=== PATIENT | female | born 1950 | race Caucasian/White ===

== ENCOUNTER 2016-08-02 13:26 | Inpatient (IN) | payer MEDICARE, OTHER ==
[~2016-08-02] VITALS: Ht 154.9 cm; Wt 81.8 kg
[2016-08-02] VITALS (35 sets, daily range): BP systolic 80–136; BP diastolic 47–73; PULSE 59–73; RESP 17–37; TEMP 96.9–97.5; O2SAT 87–98; Ht 154.9 cm; Wt 81.8 kg
--- OUTSIDE RECORDS SUMMARY | 2016-08-02 13:30 | XMS REPORT | Continuity of Care Document ---
Author Author [facility] Organization [facility] Address Unknown Phone Unavailable Allergies Active Description Code Type Severity Reaction Onset Reported/Identified Relationship to Patient Clinical Status Yes NO LATEX ALLERGY Drug Allergy N/A N/A Yes egg egg Drug Allergy Moderate RASH 12/03/2014 Yes morphine morphine Drug Allergy Moderate AIRWAY 12/03/2014 Yes Zsddqes-Iit-Szp Reductase Inhibitor Zvupmtg-Nqc-Elf Reductase Inhibitor Drug Allergy Moderate MUSCLE 12/03/2014 Yes egg egg Drug Allergy Moderate RASH 12/03/2014 Yes morphine morphine Drug Allergy Moderate AIRWAY 12/03/2014 Yes Xzpnojw-Dlx-Vjp Reductase Inhibitor Teyerty-Rog-Dxc Reductase Inhibitor Drug Allergy Moderate MUSCLE 12/03/2014 Medications Problems Procedures Results Test Result Range GLUCOSE (POC) - 12/03/14 08:54 GLUCOSE (POC) 121 mg/dL 70-99 Microbiology GLUCOSE (POC) - 12/03/14 10:57 GLUCOSE (POC) 121 mg/dL 70-99 Microbiology Encounters ACCT No. Visit Date/Time Discharge Status Pt. Type Provider Facility Loc./Unit Complaint [id number] 12/03/2014 08:44:00 2014 11:27:00 DIS Emergency Surinder CROSS, Toan Patel [facility] E.ED
--- OUTSIDE RECORDS SUMMARY | 2016-08-02 13:30 | XMS REPORT ---
Author Tre Carrillo Organization [employer] Address Unknown Phone Unavailable Care Team Providers Care Wallet Assembler Name Role Phone Tre Dc CP Unavailable Allergies No Known Allergies Problems No Known Problems Medications No Known Medications Results No Known Results Summary Purpose [employer] Submission
--- OUTSIDE RECORDS SUMMARY | 2016-08-02 13:30 | XMS REPORT | Continuity of Care Document ---
Author Author [facility] Organization [facility] Address Unknown Phone Unavailable Allergies Active Description Code Type Severity Reaction Onset Reported/Identified Relationship to Patient Clinical Status Yes NO LATEX ALLERGY Drug Allergy N/A N/A Yes egg egg Drug Allergy Moderate RASH 12/03/2014 Yes morphine morphine Drug Allergy Moderate AIRWAY 12/03/2014 Yes Inqwujs-Tgi-Rgs Reductase Inhibitor Gmdeyhs-Tib-Aig Reductase Inhibitor Drug Allergy Moderate MUSCLE 12/03/2014 Yes egg egg Drug Allergy Moderate RASH 12/03/2014 Yes morphine morphine Drug Allergy Moderate AIRWAY 12/03/2014 Yes Jcoqavg-Lps-Blv Reductase Inhibitor Sqbvies-Lid-Igs Reductase Inhibitor Drug Allergy Moderate MUSCLE 12/03/2014 Medications Problems Procedures Results Test Result Range GLUCOSE (POC) - 12/03/14 08:54 GLUCOSE (POC) 121 mg/dL 70-99 Microbiology GLUCOSE (POC) - 12/03/14 10:57 GLUCOSE (POC) 121 mg/dL 70-99 Microbiology Encounters ACCT No. Visit Date/Time Discharge Status Pt. Type Provider Facility Loc./Unit Complaint [id number] 12/03/2014 08:44:00 2014 11:27:00 DIS Emergency Surinder CROSS, Toan Patel [facility] E.ED
--- NOTE | 2016-08-02 13:43 | ERPDOC ---
Departure Impression Impression Referrals: PAULINO MEJIA MD (Family) HPI - Chest Pain General Stated Complaint: CARDIAC PROBLEMS Time Seen by Provider: 13:43 Physical Exam General Vitals and Pain Weight: Kilograms: Height (feet): Height (inches): Triage Pain Scale: Progress Results/Orders Orders Procedure Category Date Status Time EKG EKG 08/02/16 Logged 13:32 EMANUEL MORRISON MD August 02, 2016 13:43
[2016-08-02] MEDS ORDERED: ASPIRIN 81 MG CHEWABLE TABLET PO ONE (13:45)
[2016-08-02] MEDS ORDERED: NITROGLYCERIN 0.4 MG SUBLINGUAL TABLET SL PRN ×2 (13:45→15:00)
[2016-08-02] MEDS ORDERED: DIGOXIN 500mcg/2ml INJECTION IV ONE (14:00)
--- OUTSIDE RECORDS SUMMARY | 2016-08-02 14:06 | XMS REPORT | Continuity of Care Document ---
Author Author [facility] Organization [facility] Address Unknown Phone Unavailable Allergies Active Description Code Type Severity Reaction Onset Reported/Identified Relationship to Patient Clinical Status Yes NO LATEX ALLERGY Drug Allergy N/A N/A Yes egg egg Drug Allergy Moderate RASH 12/03/2014 Yes morphine morphine Drug Allergy Moderate AIRWAY 12/03/2014 Yes Reotpna-Xgy-Maa Reductase Inhibitor Jatwukt-Fum-Owh Reductase Inhibitor Drug Allergy Moderate MUSCLE 12/03/2014 Yes egg egg Drug Allergy Moderate RASH 12/03/2014 Yes morphine morphine Drug Allergy Moderate AIRWAY 12/03/2014 Yes Uyafpzw-Yda-Mok Reductase Inhibitor Dcgjpgr-Azi-Zll Reductase Inhibitor Drug Allergy Moderate MUSCLE 12/03/2014 Medications Problems Procedures Results Test Result Range GLUCOSE (POC) - 12/03/14 08:54 GLUCOSE (POC) 121 mg/dL 70-99 Microbiology GLUCOSE (POC) - 12/03/14 10:57 GLUCOSE (POC) 121 mg/dL 70-99 Microbiology Encounters ACCT No. Visit Date/Time Discharge Status Pt. Type Provider Facility Loc./Unit Complaint [id number] 12/03/2014 08:44:00 2014 11:27:00 DIS Emergency Surinder CROSS, Toan Patel [facility] E.ED
--- OUTSIDE RECORDS SUMMARY | 2016-08-02 14:06 | XMS REPORT | Continuity of Care Document ---
Author Author [facility] Organization [facility] Address Unknown Phone Unavailable Allergies Active Description Code Type Severity Reaction Onset Reported/Identified Relationship to Patient Clinical Status Yes NO LATEX ALLERGY Drug Allergy N/A N/A Yes egg egg Drug Allergy Moderate RASH 12/03/2014 Yes morphine morphine Drug Allergy Moderate AIRWAY 12/03/2014 Yes Zbeobxu-Fne-Nei Reductase Inhibitor Geneixj-Ojn-Xzz Reductase Inhibitor Drug Allergy Moderate MUSCLE 12/03/2014 Yes egg egg Drug Allergy Moderate RASH 12/03/2014 Yes morphine morphine Drug Allergy Moderate AIRWAY 12/03/2014 Yes Wuuksus-Mwa-Dyq Reductase Inhibitor Hbxlyub-Whz-Yys Reductase Inhibitor Drug Allergy Moderate MUSCLE 12/03/2014 Medications Problems Procedures Results Test Result Range GLUCOSE (POC) - 12/03/14 08:54 GLUCOSE (POC) 121 mg/dL 70-99 Microbiology GLUCOSE (POC) - 12/03/14 10:57 GLUCOSE (POC) 121 mg/dL 70-99 Microbiology Encounters ACCT No. Visit Date/Time Discharge Status Pt. Type Provider Facility Loc./Unit Complaint [id number] 12/03/2014 08:44:00 2014 11:27:00 DIS Emergency Surinder CROSS, Toan Patel [facility] E.ED
[2016-08-02] MEDS ORDERED: NORMAL SALINE 1,000 ML IV ONE (14:15)
--- NOTE | 2016-08-02 14:20 | NUR ---
Cath Pt out via cart to [facility], transported by JUVENTINO Herrera.
[2016-08-02 14:24] LABS: BASOPHILS # (AUTO) 0.1 T/MM3 (0-0.2); EOSINOPHILS # (AUTO) 0.3 T/MM3 (0-0.5); HCT - HEMATOCRIT 44.7 % (36-46); HGB - HEMOGLOBIN 14.8 GM/DL (12-16); IMMATURE GRANULOCYTE # (AUTO) 0.02 T/MM3 (0.00-0.03); IMMATURE GRANULOCYTE % (AUTO) 0.2 % (0.0-0.5); LYMPHOCYTES # (AUTO) 1.6 T/MM3 (1-4.8); LYMPHOCYTES % (AUTO) 18.2 % (23-45); MEAN CORPUSCULAR HGB 31.4 UUG (26-34); MEAN CORPUSCULAR HGB CONC(MCHC 33.1 GM/DL (31-37); MEAN CORPUSCULAR VOLUME 94.7 UM3 (80-100); MEAN PLATELET VOLUME 10.5 UM3 (9.4-12.4); MONOCYTES # (AUTO) 0.5 T/MM3 (0-0.8); NEUTROPHILS #(AUTO)-ABSOLUTE 6.3 T/MM3 (1.8-7.7); NEUTROPHILS % (AUTO) 71.6 % (33-66); RED BLOOD COUNT 4.72 M/MM3 (4.00-5.20); WBC - WHITE BLOOD COUNT 8.8 T/MM3 (4.5-11.0)
[2016-08-02] MEDS ORDERED: NORMAL SALINE 1,000 ML ONE (14:27)
[2016-08-02 14:30] LABS: INR 1.01 (0.76-1.04)
[2016-08-02] MEDS ORDERED: DiphenhydrAMINE 50 MG/ML INJECTION ONE (14:34)
[2016-08-02] MEDS ORDERED: FENTANYL 100mcg/2ml INJECTION ONE (14:37)
[2016-08-02] MEDS ORDERED: MIDAZOLAM 2mg/2ml INJECTION ONE (14:37)
[2016-08-02 14:42] LABS: MAGNESIUM 2.9 MG/DL (1.6-2.3)
[2016-08-02] MEDS ORDERED: HEPARIN 1,000units in NS 500ml BAG IV ONE (14:42)
[2016-08-02] MEDS ORDERED: LIDOCAINE 1% (10mg/ml) 30ml SDV ONE (14:42)
[2016-08-02 14:44] LABS: ALBUMIN 4.8 G/DL (3.5-5.0); ALBUMIN/GLOBULIN RATIO 1.7 RATIO (1.1-2.2); ALKALINE PHOSPHATASE 80 U/L (38-126); ALT (SGPT) 43 U/L (9-52); ANION GAP 18 MEQ/L (5-15); AST (SGOT) 51 U/L (14-36); BUN/CREATININE RATIO 10 RATIO (6-26); CALCIUM 10.7 MG/DL (8.4-10.2); CHLORIDE 111 MEQ/L (98-107); CO2 - CARBON DIOXIDE 21 MEQ/L (22-30); CREATININE 3.7 MG/DL (0.7-1.2); GLOMERULAR FILTRATION RATE 12; GLUCOSE 182 MG/DL (65-110); POTASSIUM 5.1 MEQ/L (3.6-5); SODIUM 150 MEQ/L (134-144); TOTAL PROTEIN 7.7 G/DL (6.3-8.2)
[2016-08-02 14:56] LABS: PROBNP 12800 PG/ML (0-175)
[2016-08-02] MEDS ORDERED: LORAZEPAM 2 MG/ML INJECTION IV PRN (15:00)
[2016-08-02] MEDS ORDERED: LORAZEPAM 1 MG TABLET PO PRN (15:00)
[2016-08-02] MEDS ORDERED: PROMETHAZINE 25 MG INJECTION IV PRN (15:00)
[2016-08-02] MEDS ORDERED: ONDANSETRON 4mg/2ml INJECTION IV PRN (15:00)
[2016-08-02] MEDS ORDERED: ATROPINE 1 MG/ML VIAL IV PRN (15:00)
[2016-08-02] MEDS ORDERED: MILK OF MAGNESIA 30 ML SUSP PO PRN (15:00)
[2016-08-02] MEDS ORDERED: MAG-AL + SIM LIQUID 30 ML UDC PO PRN (15:00)
[2016-08-02] MEDS ORDERED: BISACODYL 5 MG E.C. TABLET PO PRN (15:00)
[2016-08-02] MEDS ORDERED: ACETAMINOPHEN 325 MG TABLET PO PRN (15:00)
[2016-08-02] MEDS ORDERED: BISACODYL 10 MG SUPPOSITORY RECTALLY PRN (15:00)
[2016-08-02] MEDS ORDERED: METOCLOPRAMIDE 10mg/2ml INJECTION IV PRN (15:00)
[2016-08-02] MEDS ORDERED: MEXI150C2 PO (15:17)
[2016-08-02] MEDS ORDERED: FURO40TA5 PO (15:17)
[2016-08-02] MEDS ORDERED: POLY17PO2 PO (15:17)
[2016-08-02] MEDS ORDERED: FLUT15.88 NAS (15:17)
[2016-08-02] MEDS ORDERED: METO-279 PO (15:17)
[2016-08-02] MEDS ORDERED: ACET-62 PO (15:17)
[2016-08-02] MEDS ORDERED: SENN8.6T94 PO (15:17)
[2016-08-02] MEDS ORDERED: LEVO50TA11 PO (15:17)
[2016-08-02] MEDS ORDERED: LEVO175T9 PO (15:17)
[2016-08-02] MEDS ORDERED: CHOL100018 PO (15:17)
[2016-08-02] MEDS ORDERED: CYAN10009 PO (15:17)
[2016-08-02] MEDS ORDERED: PRAS10TA5 PO (15:17)
[2016-08-02] MEDS ORDERED: CALC0.25 PO (15:17)
[2016-08-02] MEDS ORDERED: POTA20TA87 PO (15:17)
[2016-08-02] MEDS ORDERED: AMIO200T2 PO (15:17)
[2016-08-02] MEDS ORDERED: FISH1CAP2 PO (15:17)
--- NOTE | 2016-08-02 15:20 | NUR ---
RECEIVED TO CCU-6 FROM [facility]NAGER. DROWSY, RESPONDS TO VERBAL STIMULI. DENIES CHEST DISCOMFORT. MONITOR SHOWS PACED RHYTHM. RIGHT GROIN DRESSING STABLE, CLEAN, DRY, INTACT, AREA SOFT. PEDAL PULSE PALPABLE , TOES COOL, SL DUSKY. O2 3 L PER NC. SPO2 AROUND 90%. SLOWLY DRIFTS TO UPPER 80'S, WITH O2 INCREASED TO 5 L PER NC.
[2016-08-02] MEDS ORDERED: POLYETHYL.GLYCOL 3350 PACKET 17gm PO PRN (15:30)
[2016-08-02] MEDS ORDERED: ACETAMINOPHEN 500 MG TABLET PO PRN (15:30)
--- OUTSIDE RECORDS SUMMARY | 2016-08-02 15:43 | XMS REPORT | Continuity of Care Document ---
Author Author [facility] Organization [facility] Address Unknown Phone Unavailable Allergies Active Description Code Type Severity Reaction Onset Reported/Identified Relationship to Patient Clinical Status Yes NO LATEX ALLERGY Drug Allergy N/A N/A Yes egg egg Drug Allergy Moderate RASH 12/03/2014 Yes morphine morphine Drug Allergy Moderate AIRWAY 12/03/2014 Yes Euwktiw-Dtn-Hbp Reductase Inhibitor Telvovx-Ept-Cop Reductase Inhibitor Drug Allergy Moderate MUSCLE 12/03/2014 Yes egg egg Drug Allergy Moderate RASH 12/03/2014 Yes morphine morphine Drug Allergy Moderate AIRWAY 12/03/2014 Yes Yuhjptb-Frx-The Reductase Inhibitor Gfvjbtl-Omp-Fae Reductase Inhibitor Drug Allergy Moderate MUSCLE 12/03/2014 Medications Problems Procedures Results Test Result Range GLUCOSE (POC) - 12/03/14 08:54 GLUCOSE (POC) 121 mg/dL 70-99 Microbiology GLUCOSE (POC) - 12/03/14 10:57 GLUCOSE (POC) 121 mg/dL 70-99 Microbiology Encounters ACCT No. Visit Date/Time Discharge Status Pt. Type Provider Facility Loc./Unit Complaint [id number] 12/03/2014 08:44:00 2014 11:27:00 DIS Emergency Surinder CROSS, Toan Patel [facility] E.ED
--- OUTSIDE RECORDS SUMMARY | 2016-08-02 15:44 | XMS REPORT | Continuity of Care Document ---
Author Author [facility] Organization [facility] Address Unknown Phone Unavailable Allergies Active Description Code Type Severity Reaction Onset Reported/Identified Relationship to Patient Clinical Status Yes NO LATEX ALLERGY Drug Allergy N/A N/A Yes egg egg Drug Allergy Moderate RASH 12/03/2014 Yes morphine morphine Drug Allergy Moderate AIRWAY 12/03/2014 Yes Ewxfyzm-Pwf-Pnf Reductase Inhibitor Toqyjzw-Fxw-Dcd Reductase Inhibitor Drug Allergy Moderate MUSCLE 12/03/2014 Yes egg egg Drug Allergy Moderate RASH 12/03/2014 Yes morphine morphine Drug Allergy Moderate AIRWAY 12/03/2014 Yes Vybffvn-Cha-Fft Reductase Inhibitor Psmqvmx-Atg-Wyc Reductase Inhibitor Drug Allergy Moderate MUSCLE 12/03/2014 Medications Problems Procedures Results Test Result Range GLUCOSE (POC) - 12/03/14 08:54 GLUCOSE (POC) 121 mg/dL 70-99 Microbiology GLUCOSE (POC) - 12/03/14 10:57 GLUCOSE (POC) 121 mg/dL 70-99 Microbiology Encounters ACCT No. Visit Date/Time Discharge Status Pt. Type Provider Facility Loc./Unit Complaint [id number] 12/03/2014 08:44:00 2014 11:27:00 DIS Emergency Surinder CROSS, Toan Patel [facility] E.ED
[2016-08-02 15:50] LABS: DIGOXIN < 0.4 NG/ML (0.8-2.0)
--- NOTE | 2016-08-02 15:55 | NUR ---
HEPARIN CONSULT (Initial): Baseline PTT = ___ Sec. Baseline platelet count = 244 T/mm3. PTT Target Range = 50-75 Will give Heparin Bolus of 5,000units, start Heparin Drip at 1000units/hr (25ml/hr). Heparin 20,000 units in D5W 500ml. We will continue to monitor and make adjustments accordingly. Thank you.
[2016-08-02] MEDS ORDERED: HEPARIN 20,000 units/D5W 500ml 500 ML IV SCH (16:00)
--- OUTSIDE RECORDS SUMMARY | 2016-08-02 16:12 | XMS REPORT | Continuity of Care Document ---
Author Author [facility] Organization [facility] Address Unknown Phone Unavailable Allergies Active Description Code Type Severity Reaction Onset Reported/Identified Relationship to Patient Clinical Status Yes NO LATEX ALLERGY Drug Allergy N/A N/A Yes egg egg Drug Allergy Moderate RASH 12/03/2014 Yes morphine morphine Drug Allergy Moderate AIRWAY 12/03/2014 Yes Bebwsuu-Kdx-Hyq Reductase Inhibitor Eldhuwq-Rio-Kod Reductase Inhibitor Drug Allergy Moderate MUSCLE 12/03/2014 Yes egg egg Drug Allergy Moderate RASH 12/03/2014 Yes morphine morphine Drug Allergy Moderate AIRWAY 12/03/2014 Yes Rzeswbd-Wnv-Ujw Reductase Inhibitor Tehmgew-Gxz-Tdv Reductase Inhibitor Drug Allergy Moderate MUSCLE 12/03/2014 Medications Problems Procedures Results Test Result Range GLUCOSE (POC) - 12/03/14 08:54 GLUCOSE (POC) 121 mg/dL 70-99 Microbiology GLUCOSE (POC) - 12/03/14 10:57 GLUCOSE (POC) 121 mg/dL 70-99 Microbiology Encounters ACCT No. Visit Date/Time Discharge Status Pt. Type Provider Facility Loc./Unit Complaint [id number] 12/03/2014 08:44:00 2014 11:27:00 DIS Emergency Surinder CROSS, Toan Patel [facility] E.ED
--- OUTSIDE RECORDS SUMMARY | 2016-08-02 16:12 | XMS REPORT | Continuity of Care Document ---
Author Author [facility] Organization [facility] Address Unknown Phone Unavailable Allergies Active Description Code Type Severity Reaction Onset Reported/Identified Relationship to Patient Clinical Status Yes NO LATEX ALLERGY Drug Allergy N/A N/A Yes egg egg Drug Allergy Moderate RASH 12/03/2014 Yes morphine morphine Drug Allergy Moderate AIRWAY 12/03/2014 Yes Kjsyjiv-Zll-Ziu Reductase Inhibitor Jctnrby-Yrr-Jzc Reductase Inhibitor Drug Allergy Moderate MUSCLE 12/03/2014 Yes egg egg Drug Allergy Moderate RASH 12/03/2014 Yes morphine morphine Drug Allergy Moderate AIRWAY 12/03/2014 Yes Rxnniyv-Egz-Qtd Reductase Inhibitor Zasqqkr-Aaw-Nnr Reductase Inhibitor Drug Allergy Moderate MUSCLE 12/03/2014 Medications Problems Procedures Results Test Result Range GLUCOSE (POC) - 12/03/14 08:54 GLUCOSE (POC) 121 mg/dL 70-99 Microbiology GLUCOSE (POC) - 12/03/14 10:57 GLUCOSE (POC) 121 mg/dL 70-99 Microbiology Encounters ACCT No. Visit Date/Time Discharge Status Pt. Type Provider Facility Loc./Unit Complaint [id number] 12/03/2014 08:44:00 2014 11:27:00 DIS Emergency Surinder CROSS, Toan Patel [facility] E.ED
--- NOTE | 2016-08-02 16:26 | HPPDOC ---
MINA BYNUM V DRUM WORKER 08/02/16 1557: HPI - Adult Date DATE: 08/02/16 TIME: 15:47 General Chief Complaint: Chest pain History of Present Illness Patient is a 66-year-old female who was brought to the emergency room today by her for evaluation of acute chest pain. She has significant cardiac history with known coronary artery disease, history of FL and CABG. She generally sees primary care at the [facility], however, today had acute pain and has been brought her to the closest facility for further evaluation. On arrival to the emergency room she was found to be in atrial fibrillation with a left bundle branch block and a wide QRS interval. Cardiology was contacted initially by the emergency room physician for further cardiac evaluation given her known history. She was then taken to the cardiac [facility] directly under the care of Dr Patricio. The hospitalist services were contacted and were asked to admit patient for further medical evaluation and treatment. Patient is seen upon arrival to CCU following heart cath. She remains sedated at this time and entire history is obtained from her . Reviewed WBC 8.8, Hgb 14.8, HCT 44.7, PLT 244. Sodium is elevated at 150, potassium 5.1, CO 21, BUN 38, creatinine 3.7, glucose 182. Magnesium 2.9. Troponin 0.022, proBNP 12,800, TSH is elevated at 22.7. INR 1.01, Digoxin <0.4. Past Medical History Past Medical History Coronary artery disease with FL and CABG (in the late ) Atrial fibrillation Chronic kidney disease Multiple CVAs History of ovarian tumor Cardiac pacemaker Radioactive thyroid ablation Surgical History Patient's Surgical History: CABG- in the . Cardiac pacemaker Hysterectomy with left ovary removal 2 Right ovarian removal with large tumor- 2010 Current Medications Home Meds Reported Medications Acetaminophen (Acetaminophen) 500 Mg Tablet, 1-2 TAB PO PRN Y for PAIN, TAB Do not exceed 3,200 mg of acetaminophen in a 24 hours period. 08/02/16 Cyanocobalamin (Vitamin B-12) (Vitamin B-12) 1,000 Mcg Tablet, 1 TAB PO DAILY 08/02/16 [place]-3 Fatty Acids/Fish Oil (Fish Oil 1,000 mg Capsule) 1 Each Capsule, 2000 MG PO DAILY, CAP 08/02/16 Prasugrel HCl (Effient) 10 Mg Tablet, 10 MG PO DAILY, TAB 08/02/16 Calcitriol (Rocaltrol) 0.25 Mcg Capsule, 1 CAP PO DAILY 08/02/16 Metoprolol Succinate (Metoprolol Succinate) 100 Mg Tab.er.24h, 50 MG PO BID, TAB 08/02/16 Cholecalciferol (Vitamin D3) 1,000 Unit Tablet, 1 TAB PO DAILY 08/02/16 Levothyroxine Sodium (Levothyroxine Sodium) 50 Mcg Tablet, 50 MCG PO ACB, TAB Once daily before breakfast. 08/02/16 Furosemide (Furosemide) 40 Mg Tablet, 80 MG PO QAM, TAB qam as needed for weight gain over 3 pounds. 08/02/16 Amiodarone HCl (Amiodarone HCl) 200 Mg Tablet, 400 MG PO BID, TAB 08/02/16 Sennosides (Senokot) 8.6 Mg Tablet, 8.6 MG PO QD, TAB 08/02/16 Mexiletine HCl (Mexiletine HCl) 150 Mg Capsule, 150 MG PO DAILY, CAP Take 1 capsule, by mouth, every 8 hours. 08/02/16 Fluticasone Propionate (Fluticasone Propionate) 15.8 Ml [place].susp, 1 SPRAY ROLO 08/02/16 Discontinued Reported Medications Polyethylene Glycol 3350 (Polyethylene Glycol 3350) 17 Gm Powd.pack, 17 GM PO BID Y for rn 08/02/16 Potassium Chloride (Potassium Chloride) 20 Meq Tab.er.prt, 20 MEQ PO QOD, TAB 08/02/16 Levothyroxine Sodium (Levothyroxine Sodium) 175 Mcg Tablet, 175 MCG PO ACB, TAB Once daily before breakfast. 08/02/16 Allergies: Coded Allergies: aspirin (Verified Allergy, Mild, 08/02/16) Influenza Virus Vaccines (Verified Allergy, Unknown, 08/02/16) Iodinated Contrast Media - Oral and (Verified Allergy, Unknown, 08/02/16) Opioids - Morphine Analogues (Verified Allergy, Unknown, 08/02/16) Penicillins (Verified Allergy, Unknown, 08/02/16) Sulfa (Sulfonamide Antibiotics) (Verified Allergy, Unknown, 08/02/16) atorvastatin (Verified Allergy, Unknown, 08/02/16) carvedilol (Verified Allergy, Unknown, 08/02/16) codeine (Verified Allergy, Unknown, 08/02/16) dipyridamole (Verified Allergy, Unknown, 08/02/16) egg (Verified Allergy, Unknown, 08/02/16) gemfibrozil (Verified Allergy, Unknown, 08/02/16) lisinopril (Verified Allergy, Unknown, 08/02/16) niacin (Verified Allergy, Unknown, 08/02/16) pravastatin (Verified Allergy, Unknown, 08/02/16) simvastatin (Verified Allergy, Unknown, 08/02/16) Family History Family History: Father was killed by a drunk line haul driver Mother- congestive heart failure, dementia Multiple siblings with dementia Social History Smoking Status: Never smoker Substance Use Type: does not use Alcohol Intake: none Marital Status: Sexuality: male partner Housing: house Advance Directives: Yes DPOA for Healthcare Only Social History Comments Primary care provider at the [facility] reports he would like patient to be a full code. However, requests that we ask patient when she is more alert what her wishes are. Review of Systems Unable to Obtain ROS Due to: clinical condition Comments Unable to obtain a ROS due to postcardiac cath sedation All Other Systems All Other Systems: Reviewed Physical Exam General General Nourishment: well nourished, well developed Vital Signs Vital Signs Date Time Temp Pulse Resp B/P Pulse Ox O2 Delivery O2 Flow Rate FiO2 08/02/16 15:37 62 20 116/66 92 Nasal Cannula 5.00 08/02/16 15:34 97.5 Height (Feet): 5 Height (Inches): 1.00 Telemetry Rhythm: Sinus Rhythm Comments Initially was in atrial fibrillation with RVR. However, upon examination. She is currently in sinus rhythm, paced. Comments Diminished bilaterally throughout Cardiovascular (brief) Cardiac Brief: FOUND: regular rate, regular rhythm, NOT FOUND: pedal edema Abdomen (brief) Abdominal Brief: FOUND: BS normo active x4, soft Integumentary (brief) Integumentary Brief: FOUND: dry, pink, warm Neurologic (brief) Comments Sedated Neurologic RN Documented GCS Eye Opening: Verbal: Motor: Total: Psychiatric (brief) Comments Currently sedated Laboratory Laboratory Tests Test 08/02/16 14:07 White Blood Count 8.8T/MM3 Red Blood Count 4.72M/MM3 Hemoglobin 14.8GM/DL Hematocrit 44.7% Mean Corpuscular Volume 94.7UM3 Mean Corpuscular Hemoglobin 31.4UUG Mean Corpuscular Hemoglobin Concent 33.1GM/DL RDW Standard Deviation 49.2FL Platelet Count 244T/MM3 Mean Platelet Volume 10.5UM3 Immature Granulocyte % (Auto) 0.2% Neutrophils (%) (Auto) 71.6% Lymphocytes (%) (Auto) 18.2% Monocytes (%) (Auto) 6.0% Eosinophils (%) (Auto) 3.0% Basophils (%) (Auto) 1.0% Absolute Immature Granulocyte (auto 0.02T/MM3 Absolute Neutrophils (auto) 6.3T/MM3 Absolute Lymphocytes (auto) 1.6T/MM3 Absolute Monocytes (auto) 0.5T/MM3 Absolute Eosinophils (auto) 0.3T/MM3 Absolute Basophils (auto) 0.1T/MM3 Prothromb Time International Ratio 1.01 Turbidity < 20 Sodium Level 150MEQ/L Potassium Level 5.1MEQ/L Chloride Level 111MEQ/L Carbon Dioxide Level 21MEQ/L Anion Gap 18MEQ/L Blood Urea Nitrogen 38.0MG/DL Creatinine 3.7MG/DL Glomerular Filtration Rate Calc 12 BUN/Creatinine Ratio 10RATIO Glucose Level 182MG/DL Calculated Osmolality 302MOSM/KG Calcium Level 10.7MG/DL Magnesium Level 2.9MG/DL Total Bilirubin 0.90MG/DL Icterus Index < 2 Aspartate Amino Transf (AST/SGOT) 51U/L Alanine Aminotransferase (ALT/SGPT) 43U/L Alkaline Phosphatase 80U/L Troponin I 0.022ng/ml [id number]-[id number]-[id number]-Type Natriuretic Peptide 93410LE/ML Total Protein 7.7G/DL Albumin 4.8G/DL Globulin 2.9G/DL Albumin/Globulin Ratio 1.7RATIO Thyroid Stimulating Hormone (TSH) 22.70MIU/L Chemistry Specimen Hemolysis < 15 Assessment & Plan Problems: (1) Chest pain Status: Acute (2) Hypernatremia Status: Acute Assessment & Plan: Has not admission sodium 150 (3) Hyperkalemia Status: Acute Assessment & Plan: Present on admission, potassium 5.1 (4) Atrial fibrillation Status: Acute Qualifiers: Atrial fibrillation type: paroxysmal Qualified Codes: I48.0 - Paroxysmal atrial fibrillation (5) CKD (chronic kidney disease) Status: Chronic Qualifiers: Chronic kidney disease stage: stage 5, not on chronic dialysis Qualified Codes: N18.5 - Chronic kidney disease, stage 5 (6) Hypothyroidism following radioiodine therapy Status: Chronic (7) Pacemaker Status: Chronic (8) CAD (coronary artery disease) of bypass graft Status: Chronic (9) Chronic anticoagulation Status: Chronic Assessment & Plan: Chronic anticoagulation, Effient Plan/Intensity of Service Admit patient to ICU under the care of Dr Russo for chest pain, CKD- end stage, Hypernatremia and Hyperkalemia In depth discussion with regarding complexity of patient's medical history. He does understand that if patient needs further renal evaluation/ treatment. Patient will have to be transferred to the [facility] where her outside machinist supervisor currently resides. Baseline Story Teller is unknown by . Expect Story Teller may worsen given IV dye. Will continue to monitor. Currently CKD stage 5 with GFR of 12. Cardiology care and orders as per Dr Patricio. ECHO ordered and pending along with pacemaker interrogation Oxygen therapy to maintain adequate saturations. Postprocedure, patient has required oxygen by nasal cannula. Will recheck BMP this evening at 1800 to follow Hypernatremia and hyperkalemia. Hold home oral potassium supplementation. Chronically on Effient for anticoagulation Recheck CBC BMP and Magnesium tomorrow morning to follow blood counts, renal function and electrolytes Will need to discuss advance directives with patient once she is more alert and awake. Will discuss further plan of care with attending, Dr Russo. Case discussed with cardiology team. 30 minutes spend talking with regarding history. At time of discharge medical care will return to primary care provider at the [facility] DVT Prophylaxis: SQ Heparin Code Status Hospital Course Summary Disclaimer The hospital course summary below is not to be considered part of the above Progress Note. Hospital Course Summary Admit patient to ICU under the care of Dr Russo for chest pain, CKD- end stage, Hypernatremia and Hyperkalemia In depth discussion with regarding complexity of patient's medical history. He does understand that if patient needs further renal evaluation/ treatment. Patient will have to be transferred to the [facility] where her outside machinist supervisor currently resides. Baseline Story Teller is unknown by . Expect Story Teller may worsen given IV dye. Will continue to monitor. Currently CKD stage 5 with GFR of 12. Cardiology care and orders as per Dr Patricio. ECHO ordered and pending along with pacemaker interrogation Oxygen therapy to maintain adequate saturations. Postprocedure, patient has required oxygen by nasal cannula. Will recheck BMP this evening at 1800 to follow Hypernatremia and hyperkalemia. Hold home oral potassium supplementation. Chronically on Effient for anticoagulation Recheck CBC BMP and Magnesium tomorrow morning to follow blood counts, renal function and electrolytes Will need to discuss advance directives with patient once she is more alert and awake. Will discuss further plan of care with attending, Dr Russo. Case discussed with cardiology team. 30 minutes spend talking with regarding history. At time of discharge medical care will return to primary care provider at the [facility] RAGINI RUSSO MD 08/02/161955: Past Medical History Current Medications Home Meds Reported Medications Acetaminophen (Acetaminophen) 500 Mg Tablet, 1-2 TAB PO PRN Y for PAIN, TAB Do not exceed 3,200 mg of acetaminophen in a 24 hours period. 08/02/16 Cyanocobalamin (Vitamin B-12) (Vitamin B-12) 1,000 Mcg Tablet, 1 TAB PO DAILY 08/02/16 [place]-3 Fatty Acids/Fish Oil (Fish Oil 1,000 mg Capsule) 1 Each Capsule, 2000 MG PO DAILY, CAP 08/02/16 Prasugrel HCl (Effient) 10 Mg Tablet, 10 MG PO DAILY, TAB 08/02/16 Calcitriol (Rocaltrol) 0.25 Mcg Capsule, 1 CAP PO DAILY 08/02/16 Metoprolol Succinate (Metoprolol Succinate) 100 Mg Tab.er.24h, 50 MG PO BID, TAB 08/02/16 Cholecalciferol (Vitamin D3) 1,000 Unit Tablet, 1 TAB PO DAILY 08/02/16 Levothyroxine Sodium (Levothyroxine Sodium) 50 Mcg Tablet, 50 MCG PO ACB, TAB Once daily before breakfast. 08/02/16 Furosemide (Furosemide) 40 Mg Tablet, 80 MG PO QAM, TAB qam as needed for weight gain over 3 pounds. 08/02/16 Amiodarone HCl (Amiodarone HCl) 200 Mg Tablet, 400 MG PO BID, TAB 08/02/16 Sennosides (Senokot) 8.6 Mg Tablet, 8.6 MG PO QD, TAB 08/02/16 Mexiletine HCl (Mexiletine HCl) 150 Mg Capsule, 150 MG PO DAILY, CAP Take 1 capsule, by mouth, every 8 hours. 08/02/16 Fluticasone Propionate (Fluticasone Propionate) 15.8 Ml [place].susp, 1 SPRAY ROLO 08/02/16 Discontinued Reported Medications Polyethylene Glycol 3350 (Polyethylene Glycol 3350) 17 Gm Powd.pack, 17 GM PO BID Y for rn 08/02/16 Potassium Chloride (Potassium Chloride) 20 Meq Tab.er.prt, 20 MEQ PO QOD, TAB 08/02/16 Levothyroxine Sodium (Levothyroxine Sodium) 175 Mcg Tablet, 175 MCG PO ACB, TAB Once daily before breakfast. 08/02/16 Allergies: Coded Allergies: aspirin (Verified Allergy, Mild, 08/02/16) Influenza Virus Vaccines (Verified Allergy, Unknown, 08/02/16) Iodinated Contrast Media - Oral and (Verified Allergy, Unknown, 08/02/16) Opioids - Morphine Analogues (Verified Allergy, Unknown, 08/02/16) Penicillins (Verified Allergy, Unknown, 08/02/16) Sulfa (Sulfonamide Antibiotics) (Verified Allergy, Unknown, 08/02/16) atorvastatin (Verified Allergy, Unknown, 08/02/16) carvedilol (Verified Allergy, Unknown, 08/02/16) codeine (Verified Allergy, Unknown, 08/02/16) dipyridamole (Verified Allergy, Unknown, 08/02/16) egg (Verified Allergy, Unknown, 08/02/16) gemfibrozil (Verified Allergy, Unknown, 08/02/16) lisinopril (Verified Allergy, Unknown, 08/02/16) niacin (Verified Allergy, Unknown, 08/02/16) pravastatin (Verified Allergy, Unknown, 08/02/16) simvastatin (Verified Allergy, Unknown, 08/02/16) Assessment & Plan Assessment Read the above history and physical with assessment plan by nurse practitioner Mina Bynum. Agree with above. Patient seen in ICU and now partially alert and answering appropriately. Physical exam corroborates. Discussed with the nature of this day and attempted to contact Dr. Betzaida Parks, outside machinist supervisor at the [employer] in [place]. Was unable to reach her at this time but will try again tomorrow. Patient is all received 1 L of fluids and we will hold for observation to ensure adequate urine output so as not to fluid overload her further. Morning the BUN and creatinine will help determine next steps of treatment. Patient will remain in critical care unit overnight status post coronary catheterization. 40 minutes total care performed without procedures MINA BYNUM APRN August 02, 2016 15:57 RAGINI RUSSO MD August 02, 2016 19:56
--- NOTE | 2016-08-02 16:53 | CVPROF ---
DATE OF PROCEDURE 08/02/2016 INDICATIONS Patient is a 66-year-old lady with a history of coronary artery disease and coronary artery bypass graft and percutaneous intervention a few months ago who presented to the emergency room with chest pressure, tightness, and heaviness associated with shortness of breath, hypotension, and EKG with left bundle branch block and atrial fibrillation. She was referred for further evaluation by cardiac catheterization and possible intervention. Patient continues to have chest pain and, therefore, we deemed it an emergency to advance with cardiac catheterization. Informed consent was obtained after explaining the procedure and the potential risks to the patient who agreed to proceed with the procedure. PROCEDURE 1. Left heart catheterization. 2. Coronary angiography. 3. Bypass angiography. 4. Selective MCINTOSH angiography. 5. Right femoral angiography to visualize the vessel for closure device. 6. Successful Mynx deployment for hemostasis. TECHNIQUE She was prepped and draped in the usual sterile techniques. 1% lidocaine was used for local anesthesia. Using modified Seldinger technique, arterial access was obtained into the right femoral artery with placement of a 6-Trinidadian arterial sheath. Conscious sedation was performed using Versed and fentanyl. CORONARY ANGIOGRAPHY Left main was free of significant lesions. Left anterior descending artery had multiple endovascular stents which were patent. Distal to the stents, there was about 70% to 80% stenosis. Left circumflex artery had minor irregularities with no significant lesions. Right coronary artery was occluded with [id number] collaterals. MCINTOSH ANGIOGRAPHY Left internal mammary angiography showed no connection to coronary bed. A vein graft to the right coronary artery was occluded. RIGHT FEMORAL ANGIOGRAPHY Right femoral angiography showed patent common femoral, proximal SFA, and profunda, and therefore Mynx was used for hemostasis. Left ventriculography was not performed due to elevated creatinine. IMPRESSION 1. Coronary artery disease as described above. 2. Successful Mynx deployment for hemostasis. PLAN Will continue medical management since patient appears to be adequately revascularized however LAD has high-grade stenosis which can be addressed in the future by percutaneous intervention. Will get an echocardiogram to evaluate the LV function and cardiac structures and evaluate her medications. NAT
[2016-08-02] MEDS: MEXILETINE 150 MG CAPSULE PO SCH (17:00)
--- NOTE | 2016-08-02 17:49 | CONSPD ---
Consultation Info Date DATE: 08/02/16 TIME: 17:28 Date of Consultation: August 02, 2016 Attending Physician: Bryan Hinson MD Reason for Consultation: chest pain HPI - Adult Date DATE: 08/02/16 TIME: 17:28 General Date of Admission Date of Admission: August 02, 2016 at 15:51 Chief Complaint: Chest pain History of Present Illness Chio is a 66-year-old female who was brought to the ED today by her for evaluation of acute chest pain. She has significant cardiac history with known coronary artery disease, history of [place] and CABG. She generally sees primary care at the [facility], however, today had acute pain and has been brought her to the closest facility for further evaluation. On arrival to the ED she was found to be in atrial fibrillation with a left bundle branch block and a wide QRS interval. Cardiology was contacted initially by the ED physician for further cardiac evaluation given her known history. She was then taken to the cardiac Mine Engineer directly under the care of Dr Patricio. Past Medical History Past Medical History Metabolic: hyperthyroidism Cardiac: CAD, [place] Female: renal failure Neurological: CVA Surgical History General: other (radioactive thyroid ablation) Cardiac: cardiac bypass, cardiac cath, cardiac stent, pacemaker Reproductive/: , hysterectomy, other (left oopherectomy) Current Medications Home Meds Reported Medications Acetaminophen (Acetaminophen) 500 Mg Tablet, 1-2 TAB PO PRN Y for PAIN, TAB Do not exceed 3,200 mg of acetaminophen in a 24 hours period. 08/02/16 Cyanocobalamin (Vitamin B-12) (Vitamin B-12) 1,000 Mcg Tablet, 1 TAB PO DAILY 08/02/16 [place]-3 Fatty Acids/Fish Oil (Fish Oil 1,000 mg Capsule) 1 Each Capsule, 2000 MG PO DAILY, CAP 08/02/16 Prasugrel HCl (Effient) 10 Mg Tablet, 10 MG PO DAILY, TAB 08/02/16 Calcitriol (Rocaltrol) 0.25 Mcg Capsule, 1 CAP PO DAILY 08/02/16 Metoprolol Succinate (Metoprolol Succinate) 100 Mg Tab.er.24h, 50 MG PO BID, TAB 08/02/16 Cholecalciferol (Vitamin D3) 1,000 Unit Tablet, 1 TAB PO DAILY 08/02/16 Levothyroxine Sodium (Levothyroxine Sodium) 50 Mcg Tablet, 50 MCG PO ACB, TAB Once daily before breakfast. 08/02/16 Furosemide (Furosemide) 40 Mg Tablet, 80 MG PO QAM, TAB qam as needed for weight gain over 3 pounds. 08/02/16 Amiodarone HCl (Amiodarone HCl) 200 Mg Tablet, 400 MG PO BID, TAB 08/02/16 Sennosides (Senokot) 8.6 Mg Tablet, 8.6 MG PO QD, TAB 08/02/16 Mexiletine HCl (Mexiletine HCl) 150 Mg Capsule, 150 MG PO DAILY, CAP Take 1 capsule, by mouth, every 8 hours. 08/02/16 Fluticasone Propionate (Fluticasone Propionate) 15.8 Ml [place].susp, 1 SPRAY ROLO 08/02/16 Discontinued Reported Medications Polyethylene Glycol 3350 (Polyethylene Glycol 3350) 17 Gm Powd.pack, 17 GM PO BID Y for rn 08/02/16 Potassium Chloride (Potassium Chloride) 20 Meq Tab.er.prt, 20 MEQ PO QOD, TAB 08/02/16 Levothyroxine Sodium (Levothyroxine Sodium) 175 Mcg Tablet, 175 MCG PO ACB, TAB Once daily before breakfast. 08/02/16 Allergies: Coded Allergies: aspirin (Verified Allergy, Mild, 08/02/16) Influenza Virus Vaccines (Verified Allergy, Unknown, 08/02/16) Iodinated Contrast Media - Oral and (Verified Allergy, Unknown, 08/02/16) Opioids - Morphine Analogues (Verified Allergy, Unknown, 08/02/16) Penicillins (Verified Allergy, Unknown, 08/02/16) Sulfa (Sulfonamide Antibiotics) (Verified Allergy, Unknown, 08/02/16) atorvastatin (Verified Allergy, Unknown, 08/02/16) carvedilol (Verified Allergy, Unknown, 08/02/16) codeine (Verified Allergy, Unknown, 08/02/16) dipyridamole (Verified Allergy, Unknown, 08/02/16) egg (Verified Allergy, Unknown, 08/02/16) gemfibrozil (Verified Allergy, Unknown, 08/02/16) lisinopril (Verified Allergy, Unknown, 08/02/16) niacin (Verified Allergy, Unknown, 08/02/16) pravastatin (Verified Allergy, Unknown, 08/02/16) simvastatin (Verified Allergy, Unknown, 08/02/16) Family History FOUND: CHF (mother), other (dementia - mother and siblings) Vaccines Yes Social History Smoking Status: Never smoker Substance Use Type: does not use Alcohol Intake: none Marital Status: Sexuality: male partner Housing: house Advance Directives: Yes DPOA for Healthcare Only () Review of Systems Constitutional: DENIES: chills, dizziness, fever, weakness Eyes Vision: DENIES: vision changes ENMT Hearing: DENIES: tinnitus Balance: DENIES: vertigo Sinuses: NOT FOUND: rhinorrhea Mouth/Throat: DENIES: sore throat Cardiovascular chest pain, dyspnea on exertion, DENIES: orthopnea, paroxysmal nocturnal dysp Rhythm/Rate: DENIES: irregular beat, palpitations, tachycardia Vascular: DENIES: pedal edema Pulmonary Respiratory: DENIES: cough, sputum GI Upper Abdomen: DENIES: nausea, vomiting Lower Abdomen: DENIES: diarrhea General: DENIES: dysuria Integumentary Skin: DENIES: rash, sores Neurological General: DENIES: headache, numbness, seizures, syncope, weakness Hematologic/Lymphatic DENIES: easy bruising All Other Systems All Other Systems: Reviewed (remainder of 10-point ROS Neg.) Physical Exam General General Nourishment: well nourished, well developed Vital Signs Vital Signs Date Time Temp Pulse Resp B/P Pulse Ox O2 Delivery O2 Flow Rate FiO2 08/02/16 16:33 60 19 99/55 87 Nasal Cannula 5.00 08/02/16 15:34 97.5 Height (Feet): 5 Height (Inches): 1.00 Telemetry Rhythm: Sinus Rhythm ENMT Brief: FOUND: mucosa moist Neck Brief: NOT FOUND: JVD, carotid bruits Respiratory Brief: FOUND: rales (left), NOT FOUND: clear all guillen, equal bilaterally, wheezes Cardiovascular (brief) Cardiac Brief: FOUND: regular rate, regular rhythm, NOT FOUND: click, gallop, murmur, pedal edema Abdomen (brief) Abdominal Brief: FOUND: BS normo active x4, soft, NOT FOUND: tender Integumentary (brief) Integumentary Brief: FOUND: dry, pink, warm Neurologic RN Documented GCS Eye Opening: Verbal: Motor: Total: Psychiatric (brief) FOUND: alert, attentive, oriented Laboratory Laboratory Tests Test 08/02/16 14:07 08/02/16 16:15 08/02/16 17:30 White Blood Count 8.8T/MM3 Red Blood Count 4.72M/MM3 Hemoglobin 14.8GM/DL Hematocrit 44.7% Mean Corpuscular Volume 94.7UM3 Mean Corpuscular Hemoglobin 31.4UUG Mean Corpuscular Hemoglobin Concent 33.1GM/DL RDW Standard Deviation 49.2FL Platelet Count 244T/MM3 Mean Platelet Volume 10.5UM3 Immature Granulocyte % (Auto) 0.2% Neutrophils (%) (Auto) 71.6% Lymphocytes (%) (Auto) 18.2% Monocytes (%) (Auto) 6.0% Eosinophils (%) (Auto) 3.0% Basophils (%) (Auto) 1.0% Absolute Immature Granulocyte (auto 0.02T/MM3 Absolute Neutrophils (auto) 6.3T/MM3 Absolute Lymphocytes (auto) 1.6T/MM3 Absolute Monocytes (auto) 0.5T/MM3 Absolute Eosinophils (auto) 0.3T/MM3 Absolute Basophils (auto) 0.1T/MM3 Prothromb Time International Ratio 1.01 Turbidity < 20 Sodium Level 150MEQ/L Potassium Level 5.1MEQ/L Chloride Level 111MEQ/L Carbon Dioxide Level 21MEQ/L Anion Gap 18MEQ/L Blood Urea Nitrogen 38.0MG/DL Creatinine 3.7MG/DL Glomerular Filtration Rate Calc 12 BUN/Creatinine Ratio 10RATIO Glucose Level 182MG/DL Calculated Osmolality 302MOSM/KG Calcium Level 10.7MG/DL Magnesium Level 2.9MG/DL Total Bilirubin 0.90MG/DL Icterus Index < 2 Aspartate Amino Transf (AST/SGOT) 51U/L Alanine Aminotransferase (ALT/SGPT) 43U/L Alkaline Phosphatase 80U/L Troponin I 0.022ng/ml RB-[id number]-[id number]-Type Natriuretic Peptide 10776WD/ML Total Protein 7.7G/DL Albumin 4.8G/DL Globulin 2.9G/DL Albumin/Globulin Ratio 1.7RATIO Thyroid Stimulating Hormone (TSH) 22.70MIU/L Chemistry Specimen Hemolysis < 15 Digoxin Level < 0.4NG/ML Activated Partial Thromboplast Time 29.0SEC Laboratory Tests Test 08/02/16 14:07 08/02/16 16:15 White Blood Count 8.8T/MM3 Red Blood Count 4.72M/MM3 Hemoglobin 14.8GM/DL Hematocrit 44.7% Mean Corpuscular Volume 94.7UM3 Mean Corpuscular Hemoglobin 31.4UUG Mean Corpuscular Hemoglobin Concent 33.1GM/DL RDW Standard Deviation 49.2FL Platelet Count 244T/MM3 Mean Platelet Volume 10.5UM3 Immature Granulocyte % (Auto) 0.2% Neutrophils (%) (Auto) 71.6% Lymphocytes (%) (Auto) 18.2% Monocytes (%) (Auto) 6.0% Eosinophils (%) (Auto) 3.0% Basophils (%) (Auto) 1.0% Absolute Immature Granulocyte (auto 0.02T/MM3 Absolute Neutrophils (auto) 6.3T/MM3 Absolute Lymphocytes (auto) 1.6T/MM3 Absolute Monocytes (auto) 0.5T/MM3 Absolute Eosinophils (auto) 0.3T/MM3 Absolute Basophils (auto) 0.1T/MM3 Prothromb Time International Ratio 1.01 Turbidity < 20 Sodium Level 150MEQ/L Potassium Level 5.1MEQ/L Chloride Level 111MEQ/L Carbon Dioxide Level 21MEQ/L Anion Gap 18MEQ/L Blood Urea Nitrogen 38.0MG/DL Creatinine 3.7MG/DL Glomerular Filtration Rate Calc 12 BUN/Creatinine Ratio 10RATIO Glucose Level 182MG/DL Calculated Osmolality 302MOSM/KG Calcium Level 10.7MG/DL Magnesium Level 2.9MG/DL Total Bilirubin 0.90MG/DL Icterus Index < 2 Aspartate Amino Transf (AST/SGOT) 51U/L Alanine Aminotransferase (ALT/SGPT) 43U/L Alkaline Phosphatase 80U/L Troponin I 0.022ng/ml HQ-Eba-Y-Type Natriuretic Peptide 54211EE/ML Total Protein 7.7G/DL Albumin 4.8G/DL Globulin 2.9G/DL Albumin/Globulin Ratio 1.7RATIO Thyroid Stimulating Hormone (TSH) 22.70MIU/L Chemistry Specimen Hemolysis < 15 Digoxin Level < 0.4NG/ML Activated Partial Thromboplast Time 29.0SEC EKG A Fib with RVR, LBBB Radiology DATE OF PROCEDURE 08/02/2016 INDICATIONS Patient is a 66-year-old lady with a history of coronary artery disease and coronary artery bypass graft and percutaneous intervention a few months ago who presented to the emergency room with chest pressure, tightness, and heaviness associated with shortness of breath, hypotension, and EKG with left bundle branch block and atrial fibrillation. She was referred for further evaluation by cardiac catheterization and possible intervention. Patient continues to have chest pain and, therefore , we deemed it an emergency to advance with cardiac catheterization. Informed consent was obtained after explaining the procedure and the potential risks to the patient who agreed to proceed with the procedure. PROCEDURE 1. Left heart catheterization. 2. Coronary angiography. 3. Bypass angiography. 4. Selective MCINTOSH angiography. 5. Right femoral angiography to visualize the vessel for closure device. 6. Successful Mynx deployment for hemostasis. TECHNIQUE She was prepped and draped in the usual sterile techniques. 1% lidocaine was used for local anesthesia. Using modified Seldinger technique, arterial access was obtained into the right femoral artery with placement of a 6-Romansh arterial sheath. Conscious sedation was performed using Versed and fentanyl. CORONARY ANGIOGRAPHY Left main was free of significant lesions. Left anterior descending artery had multiple endovascular stents which were patent. Distal to the stents, there was about 70% to 80% stenosis. Left circumflex artery had minor irregularities with no significant lesions. Right coronary artery was occluded with [id number] collaterals. MCINTOSH ANGIOGRAPHY Left internal mammary angiography showed no connection to coronary bed. A vein graft to the right coronary artery was occluded. RIGHT FEMORAL ANGIOGRAPHY Right femoral angiography showed patent common femoral, proximal SFA, and profunda, and therefore Mynx was used for hemostasis. Left ventriculography was not performed due to elevated creatinine. IMPRESSION 1. Coronary artery disease as described above. 2. Successful Mynx deployment for hemostasis. PLAN Will continue medical management since patient appears to be adequately revascularized however LAD has high-grade stenosis which can be addressed in the future by percutaneous intervention. Will get an echocardiogram to evaluate the LV function and cardiac structures and evaluate her medications. DATE OF PROCEDURE August 02, 2016 This is a two-dimensional echo with spectral Doppler, color-flow and M-mode. It was obtained in a patient with chest pain. Left atrium is dilated. Left ventricle end-diastolic dimension is increased. Left ventricle wall thickness is normal. LV systolic function is reduced with global hypokinesia with ejection fraction of 30%. Right atrium is normal. Right ventricle is normal. Aortic root dimension is normal. Pacemaker is seen in the right heart. Mitral valve annulus is calcified. Mitral valve leaflets are sclerotic with no stenosis. Severe mitral regurgitation is present. Aortic valve shows fibrocalcific changes with no stenosis or insufficiency. Tricuspid valve shows mild tricuspid regurgitation with mild pulmonary hypertension with estimated pulmonary artery systolic pressure of 37. Pulmonary valve shows trace of pulmonary insufficiency. There is no pericardial effusion. IMPRESSION 1. Global hypokinesia with ejection fraction of about 30%. 2. Left atrial dilation. 3. Left ventricular dilation. 4. Pacemaker in the right heart. 5. Mitral annulus calcification with mitral sclerosis and severe mitral regurgitation. 6. Aortic sclerosis. 7. Mild tricuspid regurgitation with mild pulmonary hypertension with estimated pulmonary artery systolic pressure of 37. 8. Trace of pulmonary insufficiency. Impression/Recommendation Problems: (1) Chest pain Status: Acute Assessment & Plan: Sternal chest pressure, abnormal EKG with AFib with RVR and LBBB. Significant history of CAD, CABG and PCI in April. Taken emergently to the cardiovascular lab for left heart catheterization. See report. (2) Atrial fibrillation Status: Acute Assessment & Plan: Given IV Digoxin en route to cardiovascular lab, converted to sinus rhythm. Will continue home Amiodarone dose. Also take Mexitel, will continue that as well. (3) Cardiomyopathy Status: Chronic Assessment & Plan: Suspect chronic Cardiomyopathy as has Medtronic ICD. EF on echo 30% (4) CAD (coronary artery disease) of bypass graft Status: Chronic Assessment & Plan: Continue beta serg (5) Pacemaker Status: Chronic Assessment & Plan: Patient reports device is Medtronic ICD. Interrogation please (6) Chronic anticoagulation Status: Chronic Assessment & Plan: Heparin drip for anticoagulation due to kidney function. Continue Effient due to recent PCI, Aspirin is a known allergy. Recommendation Chest pain: Sternal chest pressure, abnormal EKG with AFib with RVR and LBBB. Significant history of CAD, CABG and PCI in April. Taken emergently to the cardiovascular lab for left heart catheterization. See report. A Fib RVR: Given IV Digoxin en route to cardiovascular lab, converted to sinus rhythm. Will continue home Amiodarone dose. Also take Mexitel, will continue that as well. Heparin drip for anticoagulation due to kidney function. Continue Effient due to recent PCI, Aspirin is a known allergy. Thank you for allowing us to participate in this patient's care, we will follow along with you. MILTON AUSTIN APRN August 02, 2016 17:31
[2016-08-02 17:51] LABS: ANION GAP 15 MEQ/L (5-15); BUN/CREATININE RATIO 11 RATIO (6-26); CALCIUM 10.1 MG/DL (8.4-10.2); CHLORIDE 112 MEQ/L (98-107); CO2 - CARBON DIOXIDE 20 MEQ/L (22-30); CREATININE 3.4 MG/DL (0.7-1.2); GLOMERULAR FILTRATION RATE 13; GLUCOSE 156 MG/DL (65-110); POTASSIUM 5.3 MEQ/L (3.6-5); SODIUM 147 MEQ/L (134-144)
[2016-08-02 18:00] LABS: PROBNP 10200 PG/ML (0-175)
--- NOTE | 2016-08-02 18:00 | NUR ---
STATUS RIGHT GROIN DRESSING DRY AND INTACT, TISSUE SOFT. PEDAL PULSE PALPABLE BILAT. DENIES CHEST AND GROIN DISCOMFORT. RESP STATUS REQUIRING O2 5 L PER NC. DB AND C ENC. LOOSE COUGH. BREATH SOUNDS DIMINISHED. MONITOR 100% PACED RHYTHM.
[2016-08-02 19:18] LABS: BLOOD, URINE 1+ (NEGATIVE); COLOR,URINE YELLOW (YELLOW); LEUKOCYTE ESTERASE ,URINE NEGATIVE (NEGATIVE); NITRITE,URINE NEGATIVE (NEGATIVE); UROBILINOGEN,URINE 0.2 EU/DL (NORMAL)
[2016-08-02 19:28] LABS: SQUAMOUS EPITHELIAL CELL,UR 0-5; WBC,URINE 0-1 /HPF (0-5)
[2016-08-02 19:29] LABS: BACTERIA,URINE NONE SEEN (NEGATIVE); RBC,URINE NONE SEEN /HPF (0-3)
[2016-08-02] MEDS: METOPROLOL XL 50 MG TABLET PO SCH (21:08)
[2016-08-02] MEDS: AMIODARONE 200 MG TABLET PO SCH (21:09)
[2016-08-03] VITALS (39 sets, daily range): BP systolic 110–139; BP diastolic 56–79; PULSE 59–74; RESP 12–40; TEMP 95.7–98.7; O2SAT 91–99
[2016-08-03] MEDS: MEXILETINE 150 MG CAPSULE PO SCH (01:00)
--- NOTE | 2016-08-03 01:49 | NUR ---
Antidysrhythmics Pt refuses Mexitil at this time, states that she does not take 3 antidysrhythmics anymore but is currently only prescribed 1. She is unsure of the name but states it starts with Hex. Pt did have both oral amio and metoprolol at HS per do. 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 Pt has contact info.
[2016-08-03 01:51] LABS: HCT - HEMATOCRIT 39.6 % (36-46); HGB - HEMOGLOBIN 13.6 GM/DL (12-16); MEAN CORPUSCULAR HGB CONC(MCHC 34.3 GM/DL (31-37); MEAN CORPUSCULAR VOLUME 93.2 UM3 (80-100); MEAN PLATELET VOLUME 10.5 UM3 (9.4-12.4); RED BLOOD COUNT 4.25 M/MM3 (4.00-5.20); WBC - WHITE BLOOD COUNT 8.6 T/MM3 (4.5-11.0)
[2016-08-03 01:59] LABS: ANION GAP 14 MEQ/L (5-15); BUN/CREATININE RATIO 12 RATIO (6-26); CALCIUM 10.2 MG/DL (8.4-10.2); CHLORIDE 110 MEQ/L (98-107); CO2 - CARBON DIOXIDE 20 MEQ/L (22-30); CREATININE 3.4 MG/DL (0.7-1.2); GLOMERULAR FILTRATION RATE 13; GLUCOSE 265 MG/DL (65-110); MAGNESIUM 2.5 MG/DL (1.6-2.3); POTASSIUM 4.7 MEQ/L (3.6-5); SODIUM 144 MEQ/L (134-144)
--- NOTE | 2016-08-03 02:30 | NUR ---
HEPARIN ON HOLD FOR ONE HOUR PER [facility] AFTER NEW PTT RESULTS. WILL RESTART AT 10CC/HR AT 0330 PER [facility].
--- NOTE | 2016-08-03 02:30 | NUR ---
HEPARIN CONSULT: 66yo F admitted with Acute A. Fib, C.P. Hyperkalemia, Hypernatremia. Past hx of [place], CABG, Multiple CVA's, CKD. Hx of Prasugel 10mg po daily for anticoagulation. 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 Prasugel 10mg po daily restarted. Pt has ASA allergy. This am PTT = 144 Sec. Platelet count = 179 T/mm3, down from 244,000 yesterday. Will watch closely. Will HOLD Heparin drip x 1 hour, then restrart at 760units/hr (19 ml/hr). Will recheck PTT at 0930 and adjust regimen as needed. Thank you.
[2016-08-03] MEDS ORDERED: HEPARIN 20,000 units/D5W 500ml 500 ML IV SCH (03:30)
[2016-08-03 05:23] LABS: LYMPHOCYTES # (MANUAL) 0.3 T/MM3 (1-4.8); NEUTROPHILS #(MANUAL)-ABSOLUTE 8.3 T/MM3 (1.8-7.7); TOTAL CELLS COUNTED 100 %
[2016-08-03] MEDS ORDERED: LEVOTHYROXINE 175 MCG TABLET PO SCH (06:30)
[2016-08-03] MEDS ORDERED: LEVOTHYROXINE 50 MCG TABLET PO SCH (06:30)
--- NOTE | 2016-08-03 08:00 | NUR ---
AM cares: are done at the bedside. She transfers easily.
--- NOTE | 2016-08-03 08:17 | DI ---
Indication: ITS.REASON: chest pain PROCEDURE: CHEST 1 VIEW: Encounter: Initial Comparison: None Findings: Multifocal areas of airspace consolidation involving the right upper and both lower lobes. Probable small effusions. No pneumothorax. Cardiac silhouette is moderately enlarged. Prior CABG with left cardiac pacemaker defibrillator. Pulmonary vascularity is enlarged. Impression: Moderate pulmonary edema. Enlarged cardiac silhouette could be due to cardiomegaly or pericardial effusion. .
--- NOTE | 2016-08-03 08:23 | ECHOF ---
DATE OF PROCEDURE August 02, 2016 This is a two-dimensional echo with spectral Doppler, color-flow and M-mode. It was obtained in a patient with chest pain. Left atrium is dilated. Left ventricle end-diastolic dimension is increased. Left ventricle wall thickness is normal. LV systolic function is reduced with global hypokinesia with ejection fraction of 30%. Right atrium is normal. Right ventricle is normal. Aortic root dimension is normal. Pacemaker is seen in the right heart. Mitral valve annulus is calcified. Mitral valve leaflets are sclerotic with no stenosis. Severe mitral regurgitation is present. Aortic valve shows fibrocalcific changes with no stenosis or insufficiency. Tricuspid valve shows mild tricuspid regurgitation with mild pulmonary hypertension with estimated pulmonary artery systolic pressure of 37. Pulmonary valve shows trace of pulmonary insufficiency. There is no pericardial effusion. IMPRESSION 1. Global hypokinesia with ejection fraction of about 30%. 2. Left atrial dilation. 3. Left ventricular dilation. 4. Pacemaker in the right heart. 5. Mitral annulus calcification with mitral sclerosis and severe mitral regurgitation. 6. Aortic sclerosis. 7. Mild tricuspid regurgitation with mild pulmonary hypertension with estimated pulmonary artery systolic pressure of 37. 8. Trace of pulmonary insufficiency. MTDD
[2016-08-03] MEDS ORDERED: MEXILETINE 150 MG CAPSULE PO SCH (08:45)
[2016-08-03] MEDS ORDERED: CHOLECALCIFEROL 1,000 UNIT TABLET PO SCH (09:00)
[2016-08-03] MEDS ORDERED: CALCITRIOL 0.25 MCG CAPSULE PO SCH (09:00)
[2016-08-03] MEDS ORDERED: CYANOCOBALAMIN (B-12) 500mcg TABLET PO SCH (09:00)
[2016-08-03] MEDS ORDERED: SENNOSIDES 8.6 MG TABLET PO SCH (09:00)
[2016-08-03] MEDS ORDERED: PRASUGREL 10 MG TABLET PO SCH (09:00)
[2016-08-03] MEDS ORDERED: FLUTICASONE NASAL SPRAY 50 MCG NAS SCH (09:00)
--- NOTE | 2016-08-03 09:00 | NUR ---
Meds: am po meds are given.
[2016-08-03] MEDS: AMIODARONE 200 MG TABLET PO SCH (09:01)
[2016-08-03] MEDS: METOPROLOL XL 50 MG TABLET PO SCH (09:02)
--- NOTE | 2016-08-03 09:20 | NUR ---
Transfer: to medical-room 140. Telemetry on. The patient is on room air.
--- NOTE | 2016-08-03 09:22 | NUR ---
Transfer Received patient from CCU bed 6. Personal belongings in room. Patient alert and oriented. Denies pain, shortness of breath or any other symptoms currently. Oriented to bed/room environment.
--- NOTE | 2016-08-03 10:10 | NUR ---
HEPARIN CONSULT: 66yo F admitted with Acute A. Fib, C.P. Hyperkalemia, Hypernatremia. Past hx of [place], CABG, Multiple CVA's, CKD. Hx of Prasugel 10mg po daily for anticoagulation. 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 Prasugel 10mg po daily restarted. Pt has ASA allergy. PTT = 64 Sec. Therapeutic Range = 50-75 seconds. Will recheck PTT today at 1600 to confirm we are at steady state levels. Thank you.
--- NOTE | 2016-08-03 11:30 | NUR ---
CM CM IN TO SEE PT. CM EXPLAINED ROLL AND PROVIDED CONTACT INFORMATION. PT REPORTS SHE USES [facility] AND HAS NO OTHER NEEDS. PT AWARE TO CALL CM SHOULD NEEDS [facility]ISE.
--- NOTE | 2016-08-03 13:16 | PNPDOC ---
Subjective Date DATE: 08/03/16 TIME: 11:11 Margaret Barroso was seen in her room on Medical. She states she has not had her device interrogated this hospitalization. She denies cardiac complaints Objective Vital Signs Vital signs Vital Signs 08/03/16 08/03/16 08/03/16 08/03/16 01:15 01:30 01:46 02:00 Pulse 59 60 72 60 Resp 19 14 21 B/P 134/64 135/65 139/72 136/70 Pulse Ox 95 95 96 95 O2 Delivery Nasal Cannula Nasal Cannula Nasal Cannula Nasal Cannula O2 Flow Rate 5.00 5.00 5.00 5.00 08/03/16 08/03/16 08/03/16 08/03/16 02:15 02:30 02:45 03:00 Pulse 62 60 61 60 Resp 21 B/P 135/70 134/72 133/71 133/72 Pulse Ox 95 95 96 96 O2 Delivery Nasal Cannula Nasal Cannula Nasal Cannula Nasal Cannula O2 Flow Rate 5.00 5.00 5.00 5.00 08/03/16 08/03/16 08/03/16 08/03/16 03:15 03:30 03:45 04:00 Temp 98.7 Pulse 60 60 60 60 Resp 15 20 B/P 134/70 124/68 124/71 130/69 Pulse Ox 96 95 94 95 O2 Delivery Nasal Cannula Nasal Cannula Nasal Cannula Nasal Cannula O2 Flow Rate 5.00 5.00 5.00 5.00 08/03/16 08/03/16 08/03/16 08/03/16 05:00 05:15 05:30 05:45 Pulse 60 60 60 60 Resp 24 12 B/P 136/68 136/71 135/70 137/73 Pulse Ox 94 96 99 98 O2 Delivery Nasal Cannula Nasal Cannula Nasal Cannula Nasal Cannula O2 Flow Rate 5.00 5.00 5.00 5.00 08/03/16 08/03/16 08/03/16 08/03/16 06:00 06:30 06:45 07:00 Pulse 61 62 60 60 Resp 21 B/P 130/68 130/71 139/67 127/60 Pulse Ox 98 98 93 94 O2 Delivery Nasal Cannula Nasal Cannula Nasal Cannula Room Air O2 Flow Rate 5.00 3.00 2.00 08/03/16 08/03/16 08/03/1608/03/17 07:15 07:30 07:45 08:00 Temp 97.6 Pulse 61 60 60 61 Resp 31 24 20 B/P 124/63 121/65 130/64 130/64 Pulse Ox 95 93 93 96 O2 Delivery Room Air Room Air Room Air Room Air 08/03/16 08/03/16 08/03/16 08/03/16 08:15 08:16 08:30 08:45 Pulse 60 60 74 61 Resp 32 40 36 23 B/P 130/79 125/60 Pulse Ox 91 92 98 95 O2 Delivery Room Air Room Air Room Air Room Air 08/03/16 08/03/16 08/03/16 08/03/16 08:46 09:00 09:01 10:03 Temp 95.7 Pulse 61 60 61 67 Resp 22 35 35 18 B/P 124/65 123/66 110/72 Pulse Ox 95 98 97 92 O2 Delivery Room Air Room Air Room Air Room Air 08/03/16 08/03/16 11:01 11:05 Temp 95.9 Pulse 67 66 Resp 18 20 B/P 127/66 Pulse Ox 92 O2 Delivery Room Air Telemetry Rhythm: Sinus Rhythm Height (Feet): 5 Height (Inches): 1.00 Weight (Kilograms): 81.800 General Alert, Orientated x 3, Cooperative ENMT (Brief) mucosa moist Neck (Brief) NOT FOUND: JVD, carotid bruits Respiratory (Brief) clear all guillen, equal bilaterally, NOT FOUND: rales, wheezes Cardiovascular (Brief) regular rate, regular rhythm, NOT FOUND: click, gallop, murmur, pedal edema, rub Abdomen (Brief) BS normo active x4, soft Integumentary (Brief) dry, pink, warm Psychiatric (Brief) alert, attentive, normal affect, oriented Laboratory Laboratory Laboratory Tests Test 08/02/16 14:07 08/02/16 16:15 08/02/16 17:30 08/02/16 19:14 White Blood Count 8.8T/MM3 Red Blood Count 4.72M/MM3 Hemoglobin 14.8GM/DL Hematocrit 44.7% Mean Corpuscular Volume 94.7UM3 Mean Corpuscular Hemoglobin 31.4UUG Mean Corpuscular Hemoglobin Concent 33.1GM/DL RDW Standard Deviation 49.2FL Platelet Count 244T/MM3 Mean Platelet Volume 10.5UM3 Immature Granulocyte % (Auto) 0.2% Neutrophils (%) (Auto) 71.6% Lymphocytes (%) (Auto) 18.2% Monocytes (%) (Auto) 6.0% Eosinophils (%) (Auto) 3.0% Basophils (%) (Auto) 1.0% Absolute Immature Granulocyte (auto 0.02T/MM3 Absolute Neutrophils (auto) 6.3T/MM3 Absolute Lymphocytes (auto) 1.6T/MM3 Absolute Monocytes (auto) 0.5T/MM3 Absolute Eosinophils (auto) 0.3T/MM3 Absolute Basophils (auto) 0.1T/MM3 Prothromb Time International Ratio 1.01 Turbidity < 20 < 20 Sodium Level 150MEQ/L 147MEQ/L Potassium Level 5.1MEQ/L 5.3MEQ/L Chloride Level 111MEQ/L 112MEQ/L Carbon Dioxide Level 21MEQ/L 20MEQ/L Anion Gap 18MEQ/L 15MEQ/L Blood Urea Nitrogen 38.0MG/DL 38.0MG/DL Creatinine 3.7MG/DL 3.4MG/DL Glomerular Filtration Rate Calc 12 13 BUN/Creatinine Ratio 10RATIO 11RATIO Glucose Level 182MG/DL 156MG/DL Calculated Osmolality 302MOSM/KG 294MOSM/KG Calcium Level 10.7MG/DL 10.1MG/DL Magnesium Level 2.9MG/DL Total Bilirubin 0.90MG/DL Icterus Index < 2 < 2 Aspartate Amino Transf (AST/SGOT) 51U/L Alanine Aminotransferase (ALT/SGPT) 43U/L Alkaline Phosphatase 80U/L Troponin I 0.022ng/ml OX-Jgb-S-Type Natriuretic Peptide 62989RB/ML 95381YB/ML Total Protein 7.7G/DL Albumin 4.8G/DL Globulin 2.9G/DL Albumin/Globulin Ratio 1.7RATIO Thyroid Stimulating Hormone (TSH) 22.70MIU/L Chemistry Specimen Hemolysis < 15 15 Digoxin Level < 0.4NG/ML Activated Partial Thromboplast Time 29.0SEC Urine Collection Type Voided-not cc-midstr Urine Color Yellow Urine Turbidity Clear Urine pH 5.0 Urine Specific [place] 1.010 Urine Protein Negative Urine Glucose (UA) Negative Urine Ketones Negative Urine Blood 1+ Urine Nitrite Negative Urine Bilirubin Negative Urine Urobilinogen 0.2EU/DL Urine Leukocyte Esterase Negative Urine RBC None seen/HPF Urine WBC 0-1/HPF Urine Squamous Epithelial Cells 0-5 Urine Bacteria None seen Urine Culture Indicated Cult not indicated Test 08/03/16 01:38 08/03/16 09:39 White Blood Count 8.6T/MM3 Red Blood Count 4.25M/MM3 Hemoglobin 13.6GM/DL Hematocrit 39.6% Mean Corpuscular Volume 93.2UM3 Mean Corpuscular Hemoglobin 32.0UUG Mean Corpuscular Hemoglobin Concent 34.3GM/DL RDW Standard Deviation 47.4FL Platelet Count 179T/MM3 Mean Platelet Volume 10.5UM3 Immature Granulocyte % (Auto) % Neutrophils (%) (Auto) % Lymphocytes (%) (Auto) % Monocytes (%) (Auto) % Eosinophils (%) (Auto) % Basophils (%) (Auto) % Absolute Immature Granulocyte (auto T/MM3 Absolute Neutrophils (auto) T/MM3 Absolute Lymphocytes (auto) T/MM3 Absolute Monocytes (auto) T/MM3 Absolute Eosinophils (auto) T/MM3 Absolute Basophils (auto) T/MM3 Neutrophils % (Manual) 96.0% Lymphocytes % (Manual) 4.0% Absolute Neutrophils (Manual) 8.3T/MM3 Lymphocytes # (Manual) 0.3T/MM3 Red Cell Morphology Comment Normal Activated Partial Thromboplast Time 144.1SEC 64.0SEC Turbidity < 20 Sodium Level 144MEQ/L Potassium Level 4.7MEQ/L Chloride Level 110MEQ/L Carbon Dioxide Level 20MEQ/L Anion Gap 14MEQ/L Blood Urea Nitrogen 41.0MG/DL Creatinine 3.4MG/DL Glomerular Filtration Rate Calc 13 BUN/Creatinine Ratio 12RATIO Glucose Level 265MG/DL Calculated Osmolality 296MOSM/KG Calcium Level 10.2MG/DL Magnesium Level 2.5MG/DL Icterus Index < 2 Chemistry Specimen Hemolysis 39 Laboratory Tests 08/02/16 14:07 08/02/16 17:30 08/03/16 01:38 Laboratory Tests 08/02/16 14:07 08/03/16 01:38 EKG A paced and Vpaced, QT/QTc 475/488 Medications Current Medications Aspirin (ASA) 324 mg O ONCE PO ; Start 08/02/16 at 13:45; Stop 08/02/16 at 13: 46; Status DC Digoxin 250 mcg 250 mcg O ONCE IV Last administered on 08/02/16t 14:16; Start 08/02/16 at 14:00; Stop 08/02/16 at 14:01; Status DC Sodium Chloride (Normal Saline IV) 1,000 ml @ As Directed STK-MED ONCE .ROUTE ; Start 08/02/16 at 14:27; Stop 08/02/16 at 14:28; Status DC Methylprednisolone Sodium Succinate (Solu-Medrol) 125 mg STK-MED ONCE .ROUTE ; Start 08/02/16 at 14:33; Stop 08/02/16 at 14:34; Status DC Diphenhydramine HCl (Benadryl) 50 mg STK-MED ONCE .ROUTE ; Start 08/02/16 at 14: 34; Stop 08/02/16 at 14:35; Status DC Fentanyl (Fentanyl) 100 mcg STK-MED ONCE .ROUTE ; Start 08/02/16 at 14:37; Stop 08/02/16 at 14:38; Status DC Midazolam HCl (Versed) 2 mg STK-MED ONCE .ROUTE ; Start 08/02/16 at 14:37; Stop 08/02/16 at 14:38; Status DC Iodixanol (Visipaque) 1 bottle STK-MED ONCE IV ; Start 08/02/16 at 14:40; Stop 08/02/16 at 14:41; Status DC Heparin Sodium/ Sodium Chloride (HEPARIN 1,000units in NS 500ml) 1,000 unit STK- MED ONCE IV ; Start 08/02/16 at 14:42; Stop 08/02/16 at 14:43; Status DC Lidocaine HCl (Xylocaine 1%) 300 mg STK-MED ONCE .ROUTE ; Start 08/02/16 at 14: 42; Stop 08/02/16 at 14:43; Status DC Atropine Sulfate (ATROPINE 1mg INJ) 0.5 mg Q5M PRN IV pulse<40 bpm AND symptomatic; Start 08/02/16 at 15:00 Acetaminophen (Tylenol Regular Strength) 325-650 mg Q5H PRN PO PAIN; Start at 15:00; Stop 08/02/16 at 16:48; Status DC Promethazine HCl (Phenergan) 12.5-25 mg Q6H PRN IV NAUSEA &/OR VOMITING; Start 08/02/16 at 15:00 Nitroglycerin (Nitrostat) 0.4 mg Q5MIN PRN SL ANGINA; Start 08/02/16 at 15:00 Magnesium Hydroxide (Mom) 30 ml DAILY PRN PO CONSTIPATION; Start 08/02/16 at 15 :00 Bisacodyl (Dulcolax) 5-10 mg DAILY PRN PO CONSTIPATION; Start 08/02/16 at 15:00 Al Hydroxide/Mg Hydroxide (Maalox) 30 ml Q3H PRN PO INDIGESTION; Start at 15:00 Lorazepam (Ativan) 0.5-1 mg Q4H PRN IV ANXIETY; Start 08/02/16 at 15:00 Metoclopramide HCl (REGLAN Inj) 5-10 mg Q6H PRN IV NAUSEA &/OR VOMITING; Start 08/02/16 at 15:00 Ondansetron HCl (Zofran) 4 mg Q6H PRN IV NAUSEA &/OR VOMITING; Start 08/02/16 at 15:00 Acetaminophen (Tylenol Extra Strength) prn Q6H PRN PO PAIN; Start 08/02/16 at 15:30 Amiodarone HCl (Pacerone) 400 mg BID PO Last administered on 08/03/16 09:01; Start 08/02/16 at 21:00 Calcitriol (Rocaltrol) 0.25 mcg DAILY PO Last administered on 08/03/16 09:02; Start 08/03/16 at 09:00 Cholecalciferol (Vit. D3) 1,000 unit DAILY PO Last administered on 08/03/16 09 :02; Start 08/03/16 at 09:00 Cyanocobalamin (Vit. B-12) 1,000 mcg DAILY PO Last administered on 08/03/16 09 :02; Start 08/03/16 at 09:00 Fluticasone Propionate (Flonase) 1 spray DAILY ROLO Last administered on 09:03; Start 08/03/16 at 09:00 Levothyroxine Sodium (Synthroid) 175 mcg ACB PO ; Start 08/03/16 at 06:30; Stop 08/03/16 at 06:30; Status DC Metoprolol Succinate (TOPROL XL 50 mg) 50 mg BID PO Last administered on 09:02; Start 08/02/16 at 21:00 Polyethylene Glycol (Miralax) 17 g BID PRN PO rn; Start 08/02/16 at 15:30 Prasugrel (Effient) 10 mg DAILY PO Last administered on 08/03/16 09:02; Start 08/03/16 at 09:00 Sennosides (Sennagen) 8.6 mg DAILY PO Last administered on 08/03/16 09:03; Start 08/03/16 at 09:00 Heparin Sodium (Porcine) 5000 unit 5,000 unit O ONCE IV Last administered on 17:33; Start 08/02/16 at 16:00; Stop 08/02/16 at 16:01; Status DC Heparin Sodium/ Dextrose (Heparin Drip) 500 ml @ 19 mls/hr Q24H IV ; Start at 03:30 Mexiletine HCl (Mexitil) 150 mg WB PO Last administered on 08/03/16 09:03; Start 08/03/16 at 08:45 Assessment & Plan Problems: (1) Chest pain Status: Acute Assessment & Plan: Sternal chest pressure, abnormal EKG with AFib with RVR and LBBB. Significant history of CAD, CABG and PCI in April. Taken emergently to the cardiovascular lab for left heart catheterization. See report. (2) Atrial fibrillation Status: Acute Qualifiers: Atrial fibrillation type: paroxysmal Qualified Codes: I48.0 - Paroxysmal atrial fibrillation Assessment & Plan: Given IV Digoxin en route to cardiovascular lab, converted to sinus rhythm. Will continue home Amiodarone dose. Also take Mexitel, will continue that as well. (3) Cardiomyopathy Status: Chronic Assessment & Plan: Suspect chronic Cardiomyopathy as has Medtronic ICD. EF on echo 30% (4) CAD (coronary artery disease) of bypass graft Status: Chronic Assessment & Plan: Continue beta serg (5) Pacemaker Status: Chronic Assessment & Plan: Patient reports device is Medtronic ICD. Interrogation please (6) Chronic anticoagulation Status: Chronic Assessment & Plan: Heparin drip for anticoagulation due to kidney function. Continue Effient due to recent PCI, Aspirin is a known allergy. Plan/Intensity of Service 08/02/16 Chest pain: Sternal chest pressure, abnormal EKG with AFib with RVR and LBBB. Significant history of CAD, CABG and PCI in April. Taken emergently to the cardiovascular lab for left heart catheterization. See report. A Fib RVR: Given IV Digoxin en route to cardiovascular lab, converted to sinus rhythm. Will continue home Amiodarone dose. Also take Mexitel, will continue that as well. Heparin drip for anticoagulation due to kidney function. Continue Effient due to recent PCI, Aspirin is a known allergy. 08/03/16 Interrogation shows some V Tach, continue patient's Amiodarone and Mexiletine. Okay to discharge and follow up with patient's [facility] [employer] supervisor in the next 1-2 weeks. Thank you for allowing us to participate in this patient's care, we will follow along with you. MILTON AUSTIN APRN August 03, 2016 13:14
--- NOTE | 2016-08-03 13:40 | NUR ---
LAURA SANCHEZ PLACED CALL TO [facility] AT [phone] SPOKE WITH ALEIDA. ALEIDA MADE AWARE OF PT ADMISSION, HISTORY AND PHYSICAL FROM ADMISSION WAS REQUESTED AND FAXED TO [phone]. WILL CALL [facility] WHEN PT DISMISSES TO HOME PT WISHES TO CONTINUE WITH SERVICES.
[2016-08-03] MEDS ORDERED: LEVOTHYROXINE 150 MCG TABLET PO ONE (14:15)
[2016-08-03] MEDS ORDERED: LEVO150T11 PO (14:33)
--- NOTE | 2016-08-03 14:34 | DSPDOC ---
General Date Date DATE: 08/03/16 TIME: 14:11 Attending Physician Ragini Russo MD Admitting Physician Ragini Russo MD Consulting Physician Ang Patricio MD Admitting Diagnosis chest pain, CKD, Hypernatremia Discharge Diagnosis Severe hypothyroidism, chest pain, chronic kidney disease, hypernatremia Procedures Left heart cardiac catheterization by Dr. Patricio Laboratory Laboratory Tests Test 08/02/16 14:07 08/02/16 16:15 08/02/16 17:30 08/02/16 19:14 White Blood Count 8.8T/MM3 (4.5-11.0) Red Blood Count 4.72M/MM3 (4.00-5.20) Hemoglobin 14.8GM/DL (12-16) Hematocrit 44.7% (36-46) Mean Corpuscular Volume 94.7UM3 (80-100) Mean Corpuscular Hemoglobin 31.4UUG (26-34) Mean Corpuscular Hemoglobin Concent 33.1GM/DL (31-37) RDW Standard Deviation 49.2FL (36.9-50.2) Platelet Count 244T/MM3 (130-400) Mean Platelet Volume 10.5UM3 (9.4-12.4) Immature Granulocyte % (Auto) 0.2% (0.0-0.5) Neutrophils (%) (Auto) 71.6% (33-66) Lymphocytes (%) (Auto) 18.2% (23-45) Monocytes (%) (Auto) 6.0% (0-9.0) Eosinophils (%) (Auto) 3.0% (0-4) Basophils (%) (Auto) 1.0% (0-2) Absolute Immature Granulocyte (auto 0.02T/MM3 (0.00-0.03) Absolute Neutrophils (auto) 6.3T/MM3 (1.8-7.7) Absolute Lymphocytes (auto) 1.6T/MM3 (1-4.8) Absolute Monocytes (auto) 0.5T/MM3 (0-0.8) Absolute Eosinophils (auto) 0.3T/MM3 (0-0.5) Absolute Basophils (auto) 0.1T/MM3 (0-0.2) Prothromb Time International Ratio 1.01 (0.76-1.04) Turbidity < 20 (0-20) < 20 (0-20) Sodium Level 150MEQ/L (134-144) 147MEQ/L (134-144) Potassium Level 5.1MEQ/L (3.6-5) 5.3MEQ/L (3.6-5) Chloride Level 111MEQ/L (98-107) 112MEQ/L (98-107) Carbon Dioxide Level 21MEQ/L (22-30) 20MEQ/L (22-30) Anion Gap 18MEQ/L (5-15) 15MEQ/L (5-15) Blood Urea Nitrogen 38.0MG/DL (7-17) 38.0MG/DL (7-17) Creatinine 3.7MG/DL (0.7-1.2) 3.4MG/DL (0.7-1.2) Glomerular Filtration Rate Calc 12 13 BUN/Creatinine Ratio 10RATIO (6-26) 11RATIO (6-26) Glucose Level 182MG/DL (65-110) 156MG/DL (65-110) Calculated Osmolality 302MOSM/KG (261-280) 294MOSM/KG (261-280) Calcium Level 10.7MG/DL (8.4-10.2) 10.1MG/DL (8.4-10.2) Magnesium Level 2.9MG/DL (1.6-2.3) Total Bilirubin 0.90MG/DL (0.20-1.30) Icterus Index < 2 (0-7) < 2 (0-7) Aspartate Amino Transf (AST/SGOT) 51U/L (14-36) Alanine Aminotransferase (ALT/SGPT) 43U/L (9-52) Alkaline Phosphatase 80U/L (38-126) Troponin I 0.022ng/ml (0-0.12) BK-Vfv-O-Type Natriuretic Peptide 36779MA/ML (0-175) 58470ZU/ML (0-175) Total Protein 7.7G/DL (6.3-8.2) Albumin 4.8G/DL (3.5-5.0) Globulin 2.9G/DL (2.4-3.6) Albumin/Globulin Ratio 1.7RATIO (1.1-2.2) Thyroid Stimulating Hormone (TSH) 22.70MIU/L (0.47-4.68) Chemistry Specimen Hemolysis < 15 (0-25) 15 (0-25) Digoxin Level < 0.4NG/ML (0.8-2.0) Activated Partial Thromboplast Time 29.0SEC (24-36) Urine Collection Type Voided-not cc-midstr Urine Color Yellow (YELLOW) Urine Turbidity Clear (CLEAR) Urine pH 5.0 (5.0-8.0) Urine Specific [place] 1.010 (1.015-1.025) Urine Protein Negative (NEGATIVE) Urine Glucose (UA) Negative (NEGATIVE) Urine Ketones Negative (NEGATIVE) Urine Blood 1+ (NEGATIVE) Urine Nitrite Negative (NEGATIVE) Urine Bilirubin Negative (NEGATIVE) Urine Urobilinogen 0.2EU/DL (NORMAL) Urine Leukocyte Esterase Negative (NEGATIVE) Urine RBC None seen/HPF (0-3) Urine WBC 0-1/HPF (0-5) Urine Squamous Epithelial Cells 0-5 Urine Bacteria None seen (NEGATIVE) Urine Culture Indicated Cult not indicated Test 08/03/16 01:38 08/03/16 09:39 White Blood Count 8.6T/MM3 (4.5-11.0) Red Blood Count 4.25M/MM3 (4.00-5.20) Hemoglobin 13.6GM/DL (12-16) Hematocrit 39.6% (36-46) Mean Corpuscular Volume 93.2UM3 (80-100) Mean Corpuscular Hemoglobin 32.0UUG (26-34) Mean Corpuscular Hemoglobin Concent 34.3GM/DL (31-37) RDW Standard Deviation 47.4FL (36.9-50.2) Platelet Count 179T/MM3 (130-400) Mean Platelet Volume 10.5UM3 (9.4-12.4) Immature Granulocyte % (Auto) % (0.0-0.5) Neutrophils (%) (Auto) % (33-66) Lymphocytes (%) (Auto) % (23-45) Monocytes (%) (Auto) % (0-9.0) Eosinophils (%) (Auto) % (0-4) Basophils (%) (Auto) % (0-2) Absolute Immature Granulocyte (auto T/MM3 (0.00-0.03) Absolute Neutrophils (auto) T/MM3 (1.8-7.7) Absolute Lymphocytes (auto) T/MM3 (1-4.8) Absolute Monocytes (auto) T/MM3 (0-0.8) Absolute Eosinophils (auto) T/MM3 (0-0.5) Absolute Basophils (auto) T/MM3 (0-0.2) Neutrophils % (Manual) 96.0% (33-66) Lymphocytes % (Manual) 4.0% (23-45) Absolute Neutrophils (Manual) 8.3T/MM3 (1.8-7.7) Lymphocytes # (Manual) 0.3T/MM3 (1-4.8) Red Cell Morphology Comment Normal Activated Partial Thromboplast Time 144.1SEC (24-36) 64.0SEC (24-36) Turbidity < 20 (0-20) Sodium Level 144MEQ/L (134-144) Potassium Level 4.7MEQ/L (3.6-5) Chloride Level 110MEQ/L (98-107) Carbon Dioxide Level 20MEQ/L (22-30) Anion Gap 14MEQ/L (5-15) Blood Urea Nitrogen 41.0MG/DL (7-17) Creatinine 3.4MG/DL (0.7-1.2) Glomerular Filtration Rate Calc 13 BUN/Creatinine Ratio 12RATIO (6-26) Glucose Level 265MG/DL (65-110) Calculated Osmolality 296MOSM/KG (261-280) Calcium Level 10.2MG/DL (8.4-10.2) Magnesium Level 2.5MG/DL (1.6-2.3) Icterus Index < 2 (0-7) Chemistry Specimen Hemolysis 39 (0-25) History of Present Illness Patient is a 66-year-old female who was brought to the emergency room today by her for evaluation of acute chest pain. She has significant cardiac history with known coronary artery disease, history of [place] and CABG. She generally sees primary care at the [facility], however, today had acute pain and has been brought her to the closest facility for further evaluation. On arrival to the emergency room she was found to be in atrial fibrillation with a left bundle branch block and a wide QRS interval. Cardiology was contacted initially by the emergency room physician for further cardiac evaluation given her known history. She was then taken to the cardiac [facility] directly under the care of Dr Patricio. The hospitalist services were contacted and were asked to admit patient for further medical evaluation and treatment. Patient is seen upon arrival to CCU following heart cath. She remains sedated at this time and entire history is obtained from her . Reviewed WBC 8.8, Hgb 14.8, HCT 44.7, PLT 244. Sodium is elevated at 150, potassium 5.1, CO 21, BUN 38, creatinine 3.7, glucose 182. Magnesium 2.9. Troponin 0.022, proBNP 12,800, TSH is elevated at 22.7. INR 1.01, Digoxin <0.4. Hospital Course Admit patient to ICU under the care of Dr Russo for chest pain, CKD- end stage, Hypernatremia and Hyperkalemia In depth discussion with regarding complexity of patient's medical history. He does understand that if patient needs further renal evaluation/ treatment. Patient will have to be transferred to the [facility] where her hide splitter currently resides. Baseline Galley Worker is unknown by . Expect Galley Worker may worsen given IV dye. Will continue to monitor. Currently CKD stage 5 with GFR of 12. Cardiology care and orders as per Dr Patricio. ECHO ordered and pending along with pacemaker interrogation Oxygen therapy to maintain adequate saturations. Postprocedure, patient has required oxygen by nasal cannula. Will recheck BMP this evening at 1800 to follow Hypernatremia and hyperkalemia. Hold home oral potassium supplementation. Chronically on Effient for anticoagulation Recheck CBC BMP and Magnesium tomorrow morning to follow blood counts, renal function and electrolytes Will need to discuss advance directives with patient once she is more alert and awake. Will discuss further plan of care with attending, Dr Russo. Case discussed with cardiology team. 30 minutes spend talking with regarding history. At time of discharge medical care will return to primary care provider at the [facility] Problems: (1) Hypothyroidism following radioiodine therapy Onset Date: ~ 07/2016 Status: Chronic Assessment & Plan: Patient is significantly hypothyroid with TSH 22 today. Free T4 is currently pending. There is been significant discrepancy and what the patient believes she is to be taking it home and what our records indicate her last thyroid medication to have been at. As best I can see somewhere around 150 g we appear to be adequate dosing but she was significantly low at 50 g on the last refill I'm restarting ordered 150 g at this time and would recommend that she have a quick follow-up following her discharge. Recommending between one and 2 weeks on the medication with reevaluation. (2) Chest pain Status: Acute Assessment & Plan: Please see the heart report by Dr. Gonzalez. What was verbally relayed to me was that no new stents had been placed and there was no acute occlusion. Patient is to remain on Effient until April due to the placement of stents in April this year. (3) Hypernatremia Status: Acute Assessment & Plan: Patient is to follow-up with Dr. Betzaida Parks in 48 hours (4) Hyperkalemia Status: Acute Assessment & Plan: Not a critical levels but patient is again to follow-up with nephrology on (5) Atrial fibrillation Status: Acute Assessment & Plan: Likely at least partially secondary to the hypothyroidism. Will treat the underlying hypothyroidism and have Dr. Hartmann reevaluate (6) CKD (chronic kidney disease) Onset Date: ~ 07/2016 Status: Chronic Assessment & Plan: Currently being followed by nephrology (7) Pacemaker Status: Chronic (8) CAD (coronary artery disease) of bypass graft Status: Chronic (9) Chronic anticoagulation Status: Chronic Assessment & Plan: Chronic anticoagulation, Effient Code Status Full Code Home Meds Active Scripts Levothyroxine Sodium (Levothyroxine Sodium) 150 Mcg Tablet, 150 MCG PO ACB, #30 TAB 0 Refills Once daily before breakfast. Prov:RAGINI RUSSO MD 08/03/16 Reported Medications Acetaminophen (Acetaminophen) 500 Mg Tablet, 1-2 TAB PO PRN Y for PAIN, TAB Do not exceed 3,200 mg of acetaminophen in a 24 hours period. 08/02/16 Cyanocobalamin (Vitamin B-12) (Vitamin B-12) 1,000 Mcg Tablet, 1 TAB PO DAILY 08/02/16 [place]-3 Fatty Acids/Fish Oil (Fish Oil 1,000 mg Capsule) 1 Each Capsule, 2000 MG PO DAILY, CAP 08/02/16 Prasugrel HCl (Effient) 10 Mg Tablet, 10 MG PO DAILY, TAB 08/02/16 Calcitriol (Rocaltrol) 0.25 Mcg Capsule, 1 CAP PO DAILY 08/02/16 Metoprolol Succinate (Metoprolol Succinate) 100 Mg Tab.er.24h, 50 MG PO BID, TAB 08/02/16 Cholecalciferol (Vitamin D3) 1,000 Unit Tablet, 1 TAB PO DAILY 08/02/16 Levothyroxine Sodium (Levothyroxine Sodium) 50 Mcg Tablet, 150 MCG PO ACB, TAB Once daily before breakfast. 08/02/16 Furosemide (Furosemide) 40 Mg Tablet, 80 MG PO QAM, TAB qam as needed for weight gain over 3 pounds. 08/02/16 Amiodarone HCl (Amiodarone HCl) 200 Mg Tablet, 400 MG PO BID, TAB 08/02/16 Sennosides (Senokot) 8.6 Mg Tablet, 8.6 MG PO QD, TAB 08/02/16 Mexiletine HCl (Mexiletine HCl) 150 Mg Capsule, 150 MG PO DAILY, CAP Take 1 capsule, by mouth, every 8 hours. 08/02/16 Fluticasone Propionate (Fluticasone Propionate) 15.8 Ml Smyer.susp, 1 SPRAY ROLO 08/02/16 Discontinued Reported Medications Polyethylene Glycol 3350 (Polyethylene Glycol 3350) 17 Gm Powd.pack, 17 GM PO BID Y for rn 08/02/16 Potassium Chloride (Potassium Chloride) 20 Meq Tab.er.prt, 20 MEQ PO QOD, TAB 08/02/16 Levothyroxine Sodium (Levothyroxine Sodium) 175 Mcg Tablet, 175 MCG PO ACB, TAB Once daily before breakfast. 08/02/16 Face to Face Encounter I met with patient on the day of dismissal and discussed follow up appointments , medications, and safety plan. Discharge Disposition RAGINI Yepez MD August 03, 2016 14:22
[2016-08-03] MEDS ORDERED: LEVO50TA11 PO (14:39)
--- NOTE | 2016-08-03 15:17 | NUR ---
DISCHARGE TO HOME VSS. RA. DENIES PAIN. RIGHT GROIN SITE LOOKS GOOD, DRESSING CLEAN, DRY, INTACT. NON TENDER AND SOFT. DISCHARGE INSTRUCTIONS, F/U APPOINTMENTS, AND MEDS DISCUSSED WITH PT AND FAMILY. VERBALIZED UNDERSTANDING. PATIENT TAKEN TO ER ENTRANCE VIA WHEELCHAIR. DRIVING PT HOME. Addendum: 08/03/16 at 1530 by JUNO DYER RN [employer] SCRIPT SENT WITH PT.
== END 2016-08-03 15:17 | disposition home health service (06) | DRG 287 ==
LOC: ED 13:26 → CATH 14:20 → CCU 15:25 → CATH 15:51 → MED 08-03 09:21
PROVIDERS: ADMIT Family Medicine; ATTEND Family Medicine
PROC: 4A023N7 Measurement of Cardiac Sampling and Pressure, Left Heart, Percutaneous Approach (ICD-10-PCS; principal; 2016-08-02)
PROC: B211YZZ Fluoroscopy of Multiple Coronary Arteries using Other Contrast (ICD-10-PCS; 2016-08-02)
PROC: B218YZZ Fluoroscopy of Left Internal Mammary Bypass Graft using Other Contrast (ICD-10-PCS; 2016-08-02)
PROC: B212YZZ Fluoroscopy of Single Coronary Artery Bypass Graft using Other Contrast (ICD-10-PCS; 2016-08-02)
DX: I48.0 Paroxysmal atrial fibrillation (principal); E87.0 Hyperosmolality and hypernatremia; I44.7 Left bundle-branch block, unspecified; R07.9 Chest pain, unspecified; I42.9 Cardiomyopathy, unspecified; E87.5 Hyperkalemia; I25.10 Atherosclerotic heart disease of native coronary artery without angina pectoris; N18.9 Chronic kidney disease, unspecified; E89.0 Postprocedural hypothyroidism; Z95.0 Presence of cardiac pacemaker; Z95.1 Presence of aortocoronary bypass graft; I25.2 Old myocardial infarction
CPT/HCPCS: 36415; 80048; 80053; 80162; 81001; 83735; 83880; 84439; 84443; 84484; 85025; 85610; 85730; 93005; 93306; 93455; 93458; 96374

== ENCOUNTER → 2016-08-17 | Outpatient (CLI) | payer MEDICARE ==
[~2016-08-17] MED LIST: ACET-62 PO; AMIO200T2 PO; CALC0.25 PO; CHOL100018 PO; CYAN10009 PO; FISH1CAP2 PO; FLUT15.88 NAS; FURO40TA5 PO; LEVO50TA11 PO; METO-279 PO; MEXI150C2 PO; PRAS10TA5 PO; SENN8.6T94 PO
[2016-08-17 12:28] LABS: ALBUMIN 4.2 G/DL (3.5-5.0); ANION GAP 16 MEQ/L (5-15); BUN/CREATININE RATIO 10 RATIO (6-26); CALCIUM 10.8 MG/DL (8.4-10.2); CHLORIDE 107 MEQ/L (98-107); CO2 - CARBON DIOXIDE 21 MEQ/L (22-30); CREATININE 4.2 MG/DL (0.7-1.2); GLOMERULAR FILTRATION RATE 11; GLUCOSE 247 MG/DL (65-110); PHOSPHORUS 3.6 MG/DL (2.5-4.5); POTASSIUM 3.7 MEQ/L (3.6-5); SODIUM 144 MEQ/L (134-144)
== END ==
LOC: LABN.PHHH 12:13
PROVIDERS: ATTEND Family Medicine
DX: N18.4 Chronic kidney disease, stage 4 (severe) (principal)
CPT/HCPCS: 80069